=== PATIENT | female | born 1950 | race Caucasian/White ===

== ENCOUNTER → 2019-12-29 14:30 | Outpatient (BNVA) | payer SELFPAY | PROVIDERS: Visit Provider Internal Medicine | DX: M06.9 Rheumatoid arthritis, unspecified (principal); D86.9 Sarcoidosis, unspecified; M32.9 Systemic lupus erythematosus, unspecified; Z79.899 Other long term (current) drug therapy; Z11.59 Encounter for screening for other viral diseases; Z11.1 Encounter for screening for respiratory tuberculosis | CPT/HCPCS: 36415; 86480; 86704; 86803; 87340; 99213 ==

== ENCOUNTER → 2020-03-08 14:06 | Outpatient (BNVA) | payer SELFPAY | PROVIDERS: PCP Nurse Practitioner Family; Visit Provider Internal Medicine | DX: M06.9 Rheumatoid arthritis, unspecified (principal); Z79.899 Other long term (current) drug therapy; Z85.528 Personal history of other malignant neoplasm of kidney; Z85.828 Personal history of other malignant neoplasm of skin; Z98.890 Other specified postprocedural states | CPT/HCPCS: 36415; 80053; 85025; 99214 ==

== ENCOUNTER → 2020-06-05 08:13 | Outpatient (BNVA) | payer SELFPAY | PROVIDERS: PCP Nurse Practitioner Family; Visit Provider Internal Medicine | DX: M06.9 Rheumatoid arthritis, unspecified (principal); Z79.899 Other long term (current) drug therapy; R26.9 Unspecified abnormalities of gait and mobility; W19.XXXA Unspecified fall, initial encounter | CPT/HCPCS: 99214 ==

== ENCOUNTER 2020-08-21 14:14 | Outpatient (CLI) | payer SELFPAY ==
[2020-08-21 14:47] LABS: Basophils # 0.1 10^3/uL (0.0-0.1); Eosinophils # 0.2 10^3/uL (0.0-0.8); Eosinophils % 2.9 %; Hematocrit 37.3 % (37.0-47.0); Hemoglobin 11.6 g/dL (11.5-15.3); Lymphocytes # 1.3 10^3/uL (0.8-4.8); Mean Corpuscular HGB Conc 31.1 g/dL (30.0-36.0); Mean Corpuscular Hemoglobin 28.7 pg (28.0-34.0); Mean Corpuscular Volume 92.3 fL (81-99); Mean Platelet Volume 9.9 fL (7.4-10.4); Monocytes # 0.6 10^3/uL (0.2-0.9); Monocytes % 10.3 %; Neutrophils # 4.02 10^3/uL (1.8-7.7); Neutrophils % 64.5 %; Nucleated Red Blood Cells % 0 %; Platelet Count 225 10^3/cmm (130-400); Red Blood Count 4.04 10^6/uL (4.1-5.3); Red Cell Distribution Width 19.5 % (12.1-15.1); White Blood Count 6.2 10^3/uL (4.0-10.0)
[2020-08-21 15:01] LABS: Alanine Aminotransferase 16 U/L (0-33); Albumin Level 3.9 g/dL (3.5-5.2); Alkaline Phosphatase 97 IU/L (35-105); Anion Gap 12.4 (5-19); Aspartate Amino Transferase 20 U/L (0-32); Blood Urea Nitrogen 19 mg/dL (8-23); C Reactive Protein 3.2 mg/L (0.0-4.9); Calcium 8.9 mg/dL (8.5-10.5); Carbon Dioxide 25 mmol/L (22-29); Chloride 109 mmol/L (98-107); Globulin 2.8 g/dL (1.3-4.6); Glomerular Filtration Rate 40.9 mL/min (90-130); Glucose 103 mg/dL (65-115); Osmolality Calculated 297 mOsm/kg (285-295); Potassium 4.4 mmol/L (3.5-5.1); Sodium 142 mmol/L (136-145); Total Bilirubin 0.2 mg/dL (0.15-1.2); Total Protein 6.7 g/dL (6.6-8.7)
[2020-08-21 15:45] LABS: Erythrocyte Sedimentation Rate 20 mm/hr (0-15)
== END 2020-08-21 14:15 | disposition home or self-care (01) ==
LOC: LAB 14:20
PROVIDERS: PCP Nurse Practitioner Family; Visit Provider Internal Medicine
DX: M06.9 Rheumatoid arthritis, unspecified (principal); Z79.899 Other long term (current) drug therapy
CPT/HCPCS: 36415; 80053; 85025; 85651; 86140

== ENCOUNTER → 2020-08-22 13:12 | Outpatient (BNVA) | payer SELFPAY | PROVIDERS: PCP Nurse Practitioner Family; Visit Provider Internal Medicine | DX: M06.9 Rheumatoid arthritis, unspecified (principal); Z79.899 Other long term (current) drug therapy; R26.9 Unspecified abnormalities of gait and mobility | CPT/HCPCS: 99214 ==

== ENCOUNTER → 2020-11-07 12:52 | Outpatient (BNVA) | payer MEDICARE, SELFPAY | PROVIDERS: PCP Nurse Practitioner Family; Visit Provider Internal Medicine | DX: M06.9 Rheumatoid arthritis, unspecified (principal); Z79.899 Other long term (current) drug therapy; N18.9 Chronic kidney disease, unspecified; M17.11 Unilateral primary osteoarthritis, right knee; Z90.5 Acquired absence of kidney | CPT/HCPCS: 99213; 99214 ==

== ENCOUNTER 2020-11-08 13:09 | Outpatient (CLI) | payer MEDICARE, SELFPAY ==
--- NOTE | 2020-11-08 13:45 | XR_ITS ---
WS: [id number] KNEE RIGHT TECHNIQUE: 2 views of the right knee CLINICAL INFORMATION: M06.9 - Rheumatoid arthritis, unspecified COMPARISON: None. FINDINGS: Osteopenia. Marginal arthritis with joint space narrowing worse in the medial joint compartment. Hype rtrophic changes along the joint line. Hypertrophic patella. Advanced narrowing at the patellofemoral articulation. Soft tissue edema. XR/XR knee RT 1-2V [id number] IMPRESSION: Moderate degenerative arthritis worse in the medial joint compartment and baptiste lofemoral articulation. Hypertrophic patella. Kellgren-Fransisco Classification: grade 3 (moderate): moderate multiple osteoph ytes, definite narrowing of joint space and some sclerosis and possible deformi ty of bone ends
--- NOTE | 2020-11-08 14:00 | XR_ITS ---
WS: [id number] KNEE LEFT TECHNIQUE: 2 views of the left knee CLINICAL INFORMATION: M06.9 - Rheumatoid arthritis, unspecified COMPARISON: None. FINDINGS: Moderate arthritis with narrowing worse the medial joint compartment and patellofemoral articulation. Soft tissue edema. Hypertrophic changes along the joint line. No acute fractures. XR/XR knee LT 1-2V [id number] IMPRESSION: 1. Moderate degenerative arthritis worse in the medial joint compartment and p atellofemoral articulation. 2. Hypertrophic patella. Kellgren-Fransisco Classification: grade 3 (moderate): moderate multiple osteoph ytes, definite narrowing of joint space and some sclerosis and possible deformi ty of bone ends
== END 2020-11-08 13:10 | disposition home or self-care (01) ==
PROVIDERS: PCP Nurse Practitioner Family; Visit Provider Internal Medicine
DX: M06.9 Rheumatoid arthritis, unspecified (principal)
CPT/HCPCS: 73560

== ENCOUNTER → 2021-01-17 11:30 | Outpatient (BNVA) | payer MEDICARE, SELFPAY | PROVIDERS: PCP Nurse Practitioner Family; Visit Provider Internal Medicine | DX: M06.9 Rheumatoid arthritis, unspecified (principal); M17.10 Unilateral primary osteoarthritis, unspecified knee; Z79.899 Other long term (current) drug therapy; N18.9 Chronic kidney disease, unspecified; Z85.828 Personal history of other malignant neoplasm of skin; Z85.528 Personal history of other malignant neoplasm of kidney; Z90.5 Acquired absence of kidney | CPT/HCPCS: 99214 ==

== ENCOUNTER → 2021-06-27 10:09 | Outpatient (BNVA) | payer MEDICARE, SELFPAY | PROVIDERS: PCP Nurse Practitioner Family; Visit Provider Internal Medicine | DX: M06.9 Rheumatoid arthritis, unspecified (principal); Z79.899 Other long term (current) drug therapy; M17.11 Unilateral primary osteoarthritis, right knee | CPT/HCPCS: 99214 ==

== ENCOUNTER 2021-09-25 17:10 | Outpatient (CLI) | payer MEDICARE, SELFPAY ==
[2021-09-25 17:43] LABS: Basophils # 0.1 10^3/uL (0.0-0.1); Basophils % 1.1 %; Eosinophils # 0.2 10^3/uL (0.0-0.8); Eosinophils % 2.4 %; Hemoglobin 12.6 g/dL (11.5-15.3); Lymphocytes # 1.6 10^3/uL (0.8-4.8); Mean Corpuscular HGB Conc 33.2 g/dL (30.0-36.0); Mean Corpuscular Hemoglobin 30.9 pg (28.0-34.0); Mean Corpuscular Volume 93.1 fl (81-99); Mean Platelet Volume 10.5 fL (7.4-10.4); Monocytes # 0.2 10^3/uL (0.2-0.9); Monocytes % 3.8 %; Neutrophils # 4.14 10^3/uL (1.8-7.7); Neutrophils % 66.4 %; Nucleated Red Blood Cells % 0 %; Platelet Count 252 10^3/cmm (130-400); Red Blood Count 4.08 10^6/uL (4.1-5.3); Red Cell Distribution Width 14.3 % (12.1-15.1); White Blood Count 6.2 10^3/uL (4.0-10.0)
[2021-09-25 18:05] LABS: Alanine Aminotransferase 20 U/L (0-33); Albumin Level 3.9 g/dL (3.5-5.2); Alkaline Phosphatase 103 IU/L (35-105); Aspartate Amino Transferase 24 U/L (0-32); Blood Urea Nitrogen 19 mg/dL (8-23); C Reactive Protein 4.7 mg/L (0.0-4.9); Calcium 9.2 mg/dL (8.5-10.5); Carbon Dioxide 20 mmol/L (22-29); Chloride 104 mmol/L (98-107); Glomerular Filtration Rate 49.4 mL/min (90-130); Glucose 128 mg/dL (65-115); Osmolality Calculated 286 mOsm/kg (285-295); Sodium 136 mmol/L (136-145); Total Bilirubin 0.3 mg/dL (0.15-1.2); Total Protein 6.9 g/dL (6.6-8.7)
== END 2021-09-25 17:11 | disposition home or self-care (01) ==
LOC: LAB 17:12
PROVIDERS: PCP Nurse Practitioner Family; Visit Provider Internal Medicine
DX: M06.9 Rheumatoid arthritis, unspecified (principal); Z79.899 Other long term (current) drug therapy
CPT/HCPCS: 36415; 80053; 85025; 86140

== ENCOUNTER → 2021-09-26 08:29 | Outpatient (BNVA) | payer MEDICARE, SELFPAY | PROVIDERS: PCP Clinical Nurse Specialist Adult Health; Visit Provider Internal Medicine | DX: M06.9 Rheumatoid arthritis, unspecified (principal); N18.9 Chronic kidney disease, unspecified; Z79.899 Other long term (current) drug therapy | CPT/HCPCS: 99214 ==

== ENCOUNTER → 2021-12-26 09:02 | Outpatient (BNVA) | payer MEDICARE, SELFPAY | PROVIDERS: PCP Clinical Nurse Specialist Adult Health; Visit Provider Internal Medicine | DX: M06.9 Rheumatoid arthritis, unspecified (principal); N18.9 Chronic kidney disease, unspecified; Z79.899 Other long term (current) drug therapy | CPT/HCPCS: 80053; 81001; 85025; 85651; 86140; 99214 ==

== ENCOUNTER → 2022-04-09 09:46 | Outpatient (BNVA) | payer MEDICARE, SELFPAY | PROVIDERS: PCP Clinical Nurse Specialist Adult Health; Visit Provider Internal Medicine | DX: M06.9 Rheumatoid arthritis, unspecified (principal); N18.9 Chronic kidney disease, unspecified; Z79.899 Other long term (current) drug therapy; R21 Rash and other nonspecific skin eruption | CPT/HCPCS: 36415; 80053; 80061; 85025; 85651; 86140; 99214 ==

== ENCOUNTER → 2022-07-08 14:22 | Outpatient (BNVA) | payer MEDICARE, SELFPAY | PROVIDERS: PCP Clinical Nurse Specialist Adult Health; Visit Provider Internal Medicine | DX: M06.9 Rheumatoid arthritis, unspecified (principal); N18.9 Chronic kidney disease, unspecified; Z79.899 Other long term (current) drug therapy; R21 Rash and other nonspecific skin eruption | CPT/HCPCS: 36415; 80053; 85025; 85651; 86140; 99213 ==

== ENCOUNTER → 2022-07-17 06:40 | Outpatient (BNVA) | payer MEDICARE, SELFPAY | PROVIDERS: PCP Clinical Nurse Specialist Adult Health; Visit Provider Clinical Nurse Specialist Adult Health | DX: J06.9 Acute upper respiratory infection, unspecified (principal); Z20.822 Contact with and (suspected) exposure to COVID-19 | CPT/HCPCS: 87400; 87420; 87426 ==

== ENCOUNTER 2022-07-31 10:41 | Emergency (ER) | payer MEDICARE, SELFPAY ==
[2022-07-31 10:57] VITALS: BP 135/83; PULSE 69; RESP 20; TEMP 36.3; O2SAT 97; BMI 41.5
--- NOTE | 2022-07-31 13:05 | XR_ITS ---
WS: [id number] Exam: XR chest 1V portable [id number] Date/Time of Exam: 07/31/2022 1:06 PM Reason For Exam: cough No priors. The lungs are fully expanded. No consolidating infiltrates are noted. Coarsening of interstitial alexis ings may represent chronic change. No pleural effusions. Unremarkable cardiomediastinal silhouette. O ld fracture deformity of the proximal left humerus. XR/XR chest 1V portable [id number] IMPRESSION: 1. No acute process identified. 2. Coarsening of interstitial markings that may represent chronic change.
[2022-07-31 13:20] VITALS: BP 138/71; PULSE 78; RESP 16; O2SAT 95
[2022-07-31 13:38] VITALS: BP 138/71; PULSE 67; RESP 17; O2SAT 97
--- NOTE | 2022-07-31 13:38 | ED_ITS ---
HPI - URI/Sore Throat General: Chief Complaint: Upper Respiratory Infection Stated Complaint: SOB, Cough Time Seen by Provider: 07/31/22 13:05 Source: patient Mode of arrival: wheelchair Limitations: no limitations History of Present Illness: Patient is a 71-year-old female presents to ED today along with a friend for evaluation of a cough, chest congestion, shortness of breath, and left rib pain. Patient states approximately 3 weeks ago she began having a cough, sore throat, nasal congestion, etc. She states at some point she did have low-grade fevers, body aches, and chills but these have all subsided. She was seen at a walk-in clinic who suspected viral etiology. She did have negative flu and COVID swabs. Patient was placed on promethazine syrup for her cough as well as a 5-day burst steroid course. She was also given an albuterol inhaler. Patient states while on the steroids she did feel better but once those were completed she began feeling ill again. Patient was seen again at a walk-in facility and given antibiotics and tessalon perles. Patient states since taking the tessalon perles her cough has significantly improved however is still present. She states she was coughing so hard the other day that she feels like she pulled something in the left side of her chest. Patient does not complain of much dyspnea at rest but states she does become significantly short of breath with any form of exertion. She does not complain of any lower leg swelling, calf pain, orthopnea, or PND. MD elicited complaint: cough and other (chest congestion, rib pain, SOB) Onset (ago): week(s) Consistency: constant and improved Severity: moderate Description of mucous: clear Able to tolerate fluids by mouth: Yes Exacerbating factors: exertion Relieving factors: cough suppressant (tessalon pearls) and other (prednisone) Associated symptoms: Deny abdominal pain, chest pain, diarrhea, ear or mastoid pain, headache(s), nasal congestion, nausea or vomiting Treatments prior to arrival: antibiotics Review of Systems Const: Reports: other (had fever, chills, body aches several days ago but these have resolved); Denies: fatigue or malaise Eyes: Denies: change in vision, blurry vision, photophobia, floaters or seeing flashes ENMT: Denies: throat pain, odynophagia, ear or mastoid pain, nasal discharge or nasal congestion Card: Denies: chest pain Resp: Reports: dyspnea, non-productive cough and chest congestion; Denies: wheezing or hemoptysis GI: Denies: abdominal pain, nausea, vomiting or diarrhea : Denies: flank pain or dysuria Musc: Denies: neck pain, back pain, extremity pain or joint pain Skin/Breast: Denies: rash Neuro: Denies: headache(s), numbness in extremities, weakness in extremities, sensory changes, difficulty walking or dizziness PFSH ED PFSH: Medical History 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 CKD (chronic kidney disease) Hx of melanoma of skin Rash Renal carcinoma Rheumatoid arthritis Surgical History History of appendectomy History of hysterectomy for cancer History of nephrectomy S/P cholecystectomy S/P gastroplasty Status post surgical removal of malignant neoplasm of skin Family History Mother Cancer Social History Smoking and tobacco status: never smoked Alcohol intake: never Substance/Drug Use: never Physical Exam Const: COMMON NORMALS: no acute distress, patient oriented x3, no limitations, alert and well nourished GENERAL APPEARANCE: cooperative NUTRITIONAL APPEARANCE: obese ORIENTATION/CONSCIOUSNESS: Yes awake, Yes oriented to person, Yes oriented to place and Yes oriented to time HENMT: COMMON NORMALS: normocephalic and atraumatic HEAD & SCALP: normal to inspection, normocephalic and atraumatic FACE & SINUS: normal facial exam and sinuses nontender NOSE: no Nasal discharge present THROAT: posterior oropharynx normal Eye: GENERAL EYE: appearance normal, both eyes and all related structures Neck/C-Spine: COMMON NORMALS: full ROM and no lymphadenopathy GENERAL: Yes normal visual inspection Chest: COMMONS NORMALS: normal inspection of the chest OTHER: TTP L posterior lateral chest wall-no crepitus-palpation directly reproduces patient's pain Resp: COMMON NORMALS: normal respiratory effort and clear to auscultation bilaterally AUSCULTATION: clear to auscultation bilaterally Cardio: COMMON NORMALS: regular rate and regular rhythm RATE: regular rate RHYTHM: regular rhythm : COMMON NORMALS: Yes no CVA tenderness BLADDER/KIDNEY EXAM: Yes no CVA tenderness Back/Pelvis: COMMON NORMALS: no CVA tenderness, thoracic and lumbar spine normal to inspection, no thoracic nor lumbar tenderness and thoraco-lumbar ROM normal Extremity: COMMON NORMALS: normal to inspection GENERAL: Yes normal exam except as noted Neuro: FELIX COMA SCALE: document [facility] findings [place] coma scale eye opening: Spontaneous Felix coma scale verbal response: Orientated Felix coma scale motor response: Obey commands [place] coma scale total score: 15 COMMON NORMALS: patient oriented x3 SENSORIUM/ORIENTATION: Yes alert, Yes oriented to person, Yes oriented to place and Yes oriented to time Skin: COMMON NORMALS: no rashes or lesions noted GENERAL SKIN EXAM: no r ashes or lesions noted Course Vital Signs: Vital signs: Vital Signs Temperature 97.4 F L 07/31/22 10:57 Pulse Rate 79 07/31/22 15:40 Respiratory Rate 16 07/31/22 15:40 Blood Pressure 181/93 07/31/22 15:40 Pulse Oximetry 97 07/31/22 15:40 Oxygen Delivery Me thod Room Air 07/31/22 15:06 MDM - URI/Sore Throat Medical Decision Making Patient appears in no acute distress. Her vital signs are stable upon arrival. She is satting at 97% on room air. She is not tachycardic. Ultimately patient has had URI-like symptoms for approximately 3 weeks now. Blood work overall nonconcerning. Respiratory panel collected and pending. CXR showing chronic interstitial markings. Patient states she is aware of this as at one point she had a hvac specialist and had a CT scan of her chest showing chronic interstitial lung disease. Patient states her cough has improved after starting the Tessalon Perles. She states she did feel better while on the steroids we will place her on a longer steroid taper. We will place her on doxycycline for treatment of possible bacterial bronchitis. She is requesting something for pain for her left chest wall discomfort. Recommend she follow-up with primary care by the end of the week or early next week if she does not seem to be improving. Return ED precautions given. Lab Data 07/31/22 13:34 07/31/22 13:34 Radiology Impressions Chest X-Ray 07/31/22 13:05 IMPRESSION: 1. No acute process identified. 2. Coarsening of interstitial markings that may represent chronic change. Laboratory Results WBC 10.3 10^3/uL (4.0-10.0) H 07/31/22 13:34 RBC 4.09 10^6/uL (4.1-5.3) L 07/31/22 13:34 Hgb 10.5 g/dL (11.5-15.3) L 07/31/22 13:34 Hct 35.7 % (37.0-47.0) L 07/31/22 13:34 MCV 87.3 fl (81-99) 07/31/22 13:34 MCH 25.7 pg (28.0-34.0) L 07/31/22 13:34 MCHC 29.4 g/dL (30.0-36.0) L 07/31/22 13:34 RDW 18.2 % (12.1-15.1) H 07/31/22 13:34 Plt Count 456 10^3/cmm (130-400) H 07/31/22 13:34 MPV 9.8 fL (7.4-10.4) 07/31/22 13:34 Neut % (Auto) 72.8 % 07/31/22 13:34 Lymph % (Auto) 16.3 % 07/31/22 13:34 Will % (Auto) 8.3 % 07/31/22 13:34 Eos % (Auto) 1.3 % 07/31/22 13:34 Baso % (Auto) 0.9 % 07/31/22 13:34 Neut # (Auto) 7.53 10^3/uL (1.8-7.7) 07/31/22 13:34 Lymph # (Auto) 1.7 10^3/uL (0.8-4.8) 07/31/22 13:34 Will # (Auto) 0.9 10^3/uL (0.2-0.9) 07/31/22 13:34 Eos # (Auto) 0.1 10^3/uL (0.0-0.8) 07/31/22 13:34 Baso # (Auto) 0.1 10^3/uL (0.0-0.1) 07/31/22 13:34 Nucleated RBC % (auto) 0 % 07/31/22 13:34 Nucleated RBCs # 0.0 /100WBC 07/31/22 13:34 Sodium 141 mmol/L (136-145) 07/31/22 13:34 Potassium 4.2 mmol/L (3.5-5.1) 07/31/22 13:34 Chloride 106 mmol/L (98-107) 07/31/22 13:34 Carbon Dioxide 25 mmol/L (22-29) 07/31/22 13:34 Anion Gap 14.2 (5-19) 07/31/22 13:34 BUN 13 mg/dL (8-23) 07/31/22 13:34 Creatinine 1.1 mg/dL (0.5-0.9) H 07/31/22 13:34 GFR Calculation 49.2 mL/min (90-130) L 07/31/22 13:34 Glucose 101 mg/dL (65-115) 07/31/22 13:34 Calculated Osmolality 292 mOsm/kg (285-295) 07/31/22 13:34 Calcium 9.6 mg/dL (8.5-10.5) 07/31/22 13:34 Total Bilirubin 0.3 mg/dL (0.15-1.2) 07/31/22 13:34 AST 17 U/L (0-32) 07/31/22 13:34 ALT 17 U/L (0-33) 07/31/22 13:34 Alkaline Phosphatase 134 U/L (35-105) H 07/31/22 13:34 Total Protein 7.5 g/dL (6.6-8.7) 07/31/22 13:34 Albumin 4.0 g/dL (3.5-5.2) 07/31/22 13:34 Globulin 3.5 g/dL (1.3-4.6) 07/31/22 13:34 Procalcitonin 0.07 ng/mL (0-0.5) 07/31/22 13:34 Nasal Influ A H1 2008 PCR Not detected (NOT DETECT) 07/31/22 15:05 Adenovirus (PCR) Not detected (NOT DETECT) 07/31/22 15:05 C. pneumoniae DNA (PCR) Not detected (NOT DETECT) 07/31/22 15:05 Coronavirus 229E (PCR) Not detected (NOT DETECT) 07/31/22 15:05 Human Metapneumovir PCR Not detected (NOT DETECT) 07/31/22 15:05 Influenza A (H1) PCR Not detected (NOT DETECT) 07/31/22 15:05 Influenza A (H3) PCR Not detected (NOT DETECT) 07/31/22 15:05 Influenza Type A (PCR) Not detected (NOT DETECT) 07/31/22 15:05 Influenza Type B (PCR) Not detected (NOT DETECT) 07/31/22 15:05 M. pneumoniae (PCR) Not detected (NOT DETECT) 07/31/22 15:05 Parainfluenza 1 (PCR) Not detected (NOT DETECT) 07/31/22 15:05 Parainfluenza 2 (PCR) Not detected (NOT DETECT) 07/31/22 15:05 Parainfluenza 3 (PCR) Not detected (NOT DETECT) 07/31/22 15:05 Parainfluenza 4 (PCR) Not detected (NOT DETECT) 07/31/22 15:05 RSV Type A (PCR) Not detected (NOT DETECT) 07/31/22 15:05 RSV Type B (PCR) Not detected (NOT DETECT) 07/31/22 15:05 Entero/Rhino (PCR) Detected (NOT DETECT) A 07/31/22 15:05 SARS-CoV-2 (PCR) Not detected (NOT DETECT) 07/31/22 15:05 Discharge Plan Discharge Patient Disposition: Home Clinical Impression: Bronchitis Condition: Stable Prescriptions: New tramadol 50 mg tablet 50 mg PO Q6H PRN (Reason: pain) Qty: 14 0RF prednisone 10 mg tablet 10 mg PO DAILY 10 Days Qty: 27 0RF Rx Instructions: 6 tabs on days 1-2, 5 tabs on days 3, 4 tabs on day 4, 3 tabs on day 5, 2 tabs on day 6, 1 tab on day 7 doxycycline monohydrate 100 mg capsule 100 mg PO Q12H 10 Days Qty: 20 0RF No Action cholecalciferol (vitamin D3) 25 mcg (1,000 unit) capsule 25 mcg PO DAILY magnesium 250 mg tablet 250 mg PO DAILY calcium carbonate [Calcium 500] 500 mg calcium (1,250 mg) tablet 500 mg PO DAILY multivitamin [Daily Multi-Vitamin] Tablet 1 tab PO DAILY albuterol sulfate 90 mcg/actuation HFA aerosol inhaler 2 inh inhalation QID PRN (Reason: shortness of breath or wheezing) Qty: 8.5 2RF hydroxychloroquine 200 mg tablet 200 mg PO BID Qty: 180 1RF folic acid 1 mg tablet 1 mg PO DAILY Qty: 90 1RF gabapentin 100 mg capsule 200 mg PO TID 90 Days Qty: 540 2RF methotrexate sodium 2.5 mg tablet 15 mg PO Q7D Rx Instructions: ON SATURDAYS Discharge Orders: Discharge ED (Routine); Ordered 07/31/22 Ordered By: Marge Sullivan Referrals: Balbir Owens POLYMER SCIENTIST [Primary Care Provider] - Patient Instructions: Acute Bronchitis (ED) Coding Level of Care Code ED Corrugator Machine Operator for Magdaleno Walker
[2022-07-31] MEDS: morphine 4 mg/mL SDV 1 mL IVP (13:42)
[2022-07-31 13:55] LABS: Basophils # 0.1 10^3/uL (0.0-0.1); Basophils % 0.9 %; Eosinophils # 0.1 10^3/uL (0.0-0.8); Eosinophils % 1.3 %; Hematocrit 35.7 % (37.0-47.0); Hemoglobin 10.5 g/dL (11.5-15.3); Lymphocytes # 1.7 10^3/uL (0.8-4.8); Lymphocytes % 16.3 %; Mean Corpuscular HGB Conc 29.4 g/dL (30.0-36.0); Mean Corpuscular Hemoglobin 25.7 pg (28.0-34.0); Mean Corpuscular Volume 87.3 fl (81-99); Mean Platelet Volume 9.8 fL (7.4-10.4); Monocytes # 0.9 10^3/uL (0.2-0.9); Monocytes % 8.3 %; Neutrophils # 7.53 10^3/uL (1.8-7.7); Neutrophils % 72.8 %; Nucleated Red Blood Cells % 0 %; Platelet Count 456 10^3/cmm (130-400); Red Blood Count 4.09 10^6/uL (4.1-5.3); Red Cell Distribution Width 18.2 % (12.1-15.1); White Blood Count 10.3 10^3/uL (4.0-10.0)
[2022-07-31 14:19] LABS: Alanine Aminotransferase 17 U/L (0-33); Alkaline Phosphatase 134 U/L (35-105); Anion Gap 14.2 (5-19); Aspartate Amino Transferase 17 U/L (0-32); Blood Urea Nitrogen 13 mg/dL (8-23); Calcium 9.6 mg/dL (8.5-10.5); Carbon Dioxide 25 mmol/L (22-29); Chloride 106 mmol/L (98-107); Globulin 3.5 g/dL (1.3-4.6); Glomerular Filtration Rate 49.2 mL/min (90-130); Glucose 101 mg/dL (65-115); Osmolality Calculated 292 mOsm/kg (285-295); Potassium 4.2 mmol/L (3.5-5.1); Sodium 141 mmol/L (136-145); Total Bilirubin 0.3 mg/dL (0.15-1.2); Total Protein 7.5 g/dL (6.6-8.7)
[2022-07-31 14:25] VITALS: PULSE 77; RESP 16; O2SAT 97
[2022-07-31 14:26] LABS: Procalcitonin 0.07 ng/mL (0-0.5)
[2022-07-31 15:06] VITALS: BP 181/93; PULSE 79; RESP 16; O2SAT 97
[2022-07-31 15:40] VITALS: BP 181/93; PULSE 79; RESP 16; O2SAT 97
[2022-07-31 16:59] LABS: Adenovirus Not Detected (NOT DETECT); Chlamydia Pneumoniae Not Detected (NOT DETECT); Coronavirus 229E,HKU1,NL63,OC4 Not Detected (NOT DETECT); Human Metapneumovirus Not Detected (NOT DETECT); Human Rhinovirus/Enterovirus Detected (NOT DETECT); Influenza A Not Detected (NOT DETECT); Influenza A H1 Not Detected (NOT DETECT); Influenza A H1-2009 Not Detected (NOT DETECT); Influenza A H3 Not Detected (NOT DETECT); Influenza B Not Detected (NOT DETECT); Mycoplasma Pneumoniae Not Detected (NOT DETECT); Parainfluenza Virus Type 1 Not Detected (NOT DETECT); Parainfluenza Virus Type 2 Not Detected (NOT DETECT); Parainfluenza Virus Type 3 Not Detected (NOT DETECT); Parainfluenza Virus Type 4 Not Detected (NOT DETECT); Respiratory Syncytial Virus A Not Detected (NOT DETECT); Respiratory Syncytial Virus B Not Detected (NOT DETECT); SARS-COV-2 Not Detected (NOT DETECT)
== END 2022-07-31 15:44 | disposition home or self-care (01) ==
PROVIDERS: Emergency Provider Physician Assistant; PCP Clinical Nurse Specialist Adult Health
DX: J40 Bronchitis, not specified as acute or chronic (principal); Z20.822 Contact with and (suspected) exposure to COVID-19; N18.9 Chronic kidney disease, unspecified; Z85.528 Personal history of other malignant neoplasm of kidney
CPT/HCPCS: 71045; 80053; 84145; 85025; 87486; 87581; 87633; 96374; 99284; J2270

== ENCOUNTER → 2022-10-03 14:28 | Outpatient (BNVA) | payer MEDICARE, SELFPAY | PROVIDERS: PCP Clinical Nurse Specialist Adult Health; Visit Provider Internal Medicine | DX: M06.9 Rheumatoid arthritis, unspecified (principal); N18.9 Chronic kidney disease, unspecified; Z79.899 Other long term (current) drug therapy; R21 Rash and other nonspecific skin eruption | CPT/HCPCS: 99214 ==

== ENCOUNTER → 2022-12-18 15:23 | Outpatient (BNVA) | payer MEDICARE, SELFPAY | PROVIDERS: PCP Clinical Nurse Specialist Adult Health; Visit Provider Internal Medicine | DX: M17.10 Unilateral primary osteoarthritis, unspecified knee (principal); M06.9 Rheumatoid arthritis, unspecified; N18.9 Chronic kidney disease, unspecified; Z79.899 Other long term (current) drug therapy | CPT/HCPCS: 36415; 80053; 85025; 99214 ==

== ENCOUNTER → 2023-03-12 15:04 | Outpatient (BNVA) | payer MEDICARE, SELFPAY | PROVIDERS: PCP Clinical Nurse Specialist Adult Health; Visit Provider Internal Medicine | DX: M17.10 Unilateral primary osteoarthritis, unspecified knee (principal); N18.9 Chronic kidney disease, unspecified; Z79.899 Other long term (current) drug therapy; M06.9 Rheumatoid arthritis, unspecified | CPT/HCPCS: 36415; 80053; 85025; 85651; 86140; 99214 ==

== ENCOUNTER → 2023-05-28 14:07 | Outpatient (BNVA) | payer MEDICARE, SELFPAY | PROVIDERS: PCP Clinical Nurse Specialist Adult Health; Visit Provider Clinical Nurse Specialist Adult Health | DX: N18.9 Chronic kidney disease, unspecified (principal); D64.9 Anemia, unspecified; N23 Unspecified renal colic; D63.1 Anemia in chronic kidney disease; R73.01 Impaired fasting glucose | CPT/HCPCS: 80053; 81000; 83036; 83540; 85025; 87086 ==

== ENCOUNTER 2023-06-19 15:00 | Oncology outpatient (recurring) (ONCR) | payer MEDICARE, SELFPAY ==
[2023-06-12 14:26] LABS: Basophils # 0.1 10^3/uL (0.0-0.1); Basophils % 1.1 %; Eosinophils # 0.2 10^3/uL (0.0-0.8); Eosinophils % 2.9 %; Lymphocytes # 1.7 10^3/uL (0.8-4.8); Lymphocytes % 23.4 %; Mean Corpuscular Hemoglobin 23.6 pg (27-33); Mean Corpuscular Volume 81.4 fl (85-98); Mean Platelet Volume 9.7 fL (7.4-10.4); Monocytes # 0.8 10^3/uL (0.2-0.9); Monocytes % 10.9 %; Neutrophils # 4.39 10^3/uL (1.8-7.7); Neutrophils % 61.4 %; Nucleated Red Blood Cells % 0 %; Platelet Count 363 10^3/cmm (157-399); Red Blood Count 3.81 10^6/uL (3.85-5.65); Red Cell Distribution Width 20.9 % (12.1-15.1); White Blood Count 7.15 10^3/uL (3.29-11.43)
[2023-06-12] MEDS: ferric carboxy (IVPB) 750 MG in sodium chloride 0.9% (100 ml) 100 ML 345 MG IV (14:42)
[2023-06-12] MEDS: sodium chloride 0.9% 250 ML 75 ML IV (14:43)
[2023-06-12 14:48] LABS: Alanine Aminotransferase 13 U/L (0-33); Albumin Level 3.9 g/dL (3.5-5.2); Alkaline Phosphatase 108 U/L (35-105); Anion Gap 12.6 (5-19); Aspartate Amino Transferase 18 U/L (0-32); Blood Urea Nitrogen 19 mg/dL (8-23); Carbon Dioxide 24 mmol/L (22-29); Chloride 107 mmol/L (98-107); Creatinine Clr Calc Pharmacy 67.4124; Globulin 2.7 g/dL (1.3-4.6); Glomerular Filtration Rate 44.4 mL/min (90-130); Glucose 101 mg/dL (65-115); Osmolality Calculated 290 mOsm/kg (285-295); Potassium 4.6 mmol/L (3.5-5.1); Sodium 139 mmol/L (136-145); Total Bilirubin 0.2 mg/dL (0.15-1.2); Total Protein 6.6 g/dL (6.6-8.7)
[2023-06-12 14:50] LABS: Alanine Aminotransferase 13 U/L (0-33); Albumin Level 3.9 g/dL (3.5-5.2); Alkaline Phosphatase 107 U/L (35-105); Aspartate Amino Transferase 18 U/L (0-32); C Reactive Protein 3.3 mg/L (0.0-4.9); Creatinine Clr Calc Pharmacy 73.5408; Ferritin 8 ng/mL (15-150); Globulin 2.7 g/dL (1.3-4.6); Glomerular Filtration Rate 49.1 mL/min (90-130); Iron 20 ug/dL (37-145); Percent Saturation 4.7 % (20-50); Total Bilirubin 0.2 mg/dL (0.15-1.2); Total Iron Binding Capacity 425 mcg/dl; Total Protein 6.6 g/dL (6.6-8.7); Unsaturated Iron Binding 405 ug/dL (112-347)
[2023-06-19 15:15] VITALS: BP 156/71; PULSE 86; RESP 16; TEMP 36.9; O2SAT 95
[2023-06-19] MEDS: ferric carboxy (IVPB) 750 MG in sodium chloride 0.9% (100 ml) 100 ML 345 MG IV (15:40)
[2023-06-19 16:10] VITALS: BP 146/81; PULSE 76; RESP 16; TEMP 36.8; O2SAT 98
== END 2023-07-06 23:59 | disposition home or self-care (01) ==
PROVIDERS: Internal Medicine Rheumatology; PCP Clinical Nurse Specialist Adult Health; Visit Provider Internal Medicine Medical Oncology
DX: D50.9 Iron deficiency anemia, unspecified (principal); Z53.9 Procedure and treatment not carried out, unspecified reason
CPT/HCPCS: 80053; 80076; 82565; 82728; 83540; 83550; 85025; 86140; 96365; 99205; J1439; J7050

== ENCOUNTER → 2023-06-24 13:54 | Outpatient (BNVA) | payer MEDICARE, SELFPAY | PROVIDERS: PCP Clinical Nurse Specialist Adult Health; Visit Provider Internal Medicine Rheumatology | DX: Z79.899 Other long term (current) drug therapy (principal); M06.9 Rheumatoid arthritis, unspecified; N18.31 Chronic kidney disease, stage 3a | CPT/HCPCS: 99214 ==

== ENCOUNTER 2023-07-30 15:30 | Oncology outpatient (recurring) (ONCR) | payer MEDICARE, SELFPAY ==
[2023-07-22 15:05] LABS: Basophils # 0.1 10^3/uL (0.0-0.1); Basophils % 1.2 %; Eosinophils # 0.2 10^3/uL (0.0-0.8); Eosinophils % 2.5 %; Lymphocytes # 1.3 10^3/uL (0.8-4.8); Lymphocytes % 19.8 %; Mean Corpuscular HGB Conc 30.7 g/dL (30-55); Mean Corpuscular Hemoglobin 28.2 pg (27-33); Mean Corpuscular Volume 91.9 fl (85-98); Mean Platelet Volume 10.8 fL (7.4-10.4); Monocytes # 0.6 10^3/uL (0.2-0.9); Monocytes % 9.7 %; Neutrophils # 4.34 10^3/uL (1.8-7.7); Neutrophils % 66.6 %; Nucleated Red Blood Cells % 0 %; Platelet Count 259 10^3/cmm (157-399); Red Blood Count 4.57 10^6/uL (3.85-5.65); Red Cell Distribution Width 25.4 % (12.1-15.1); White Blood Count 6.51 10^3/uL (3.29-11.43)
[2023-07-22 15:25] LABS: Alanine Aminotransferase 17 U/L (0-33); Alkaline Phosphatase 125 U/L (35-105); Anion Gap 14.2 (5-19); Aspartate Amino Transferase 22 U/L (0-32); Blood Urea Nitrogen 22 mg/dL (8-23); Calcium 9.4 mg/dL (8.5-10.5); Carbon Dioxide 22 mmol/L (22-29); Chloride 108 mmol/L (98-107); Ferritin 90 ng/mL (15-150); Globulin 3.1 g/dL (1.3-4.6); Glomerular Filtration Rate 54.8 mL/min (90-130); Glucose 199 mg/dL (65-115); Iron 49 ug/dL (37-145); Osmolality Calculated 299 mOsm/kg (285-295); Percent Saturation 15.6 % (20-50); Potassium 4.2 mmol/L (3.5-5.1); Sodium 140 mmol/L (136-145); Total Bilirubin 0.2 mg/dL (0.15-1.2); Total Iron Binding Capacity 314 mcg/dl; Total Protein 7.1 g/dL (6.6-8.7); Unsaturated Iron Binding 265 ug/dL (112-347)
[2023-07-22] MEDS: ipratropium-albuterol 3 mL Neb INHALATION (16:19)
[2023-07-30 15:57] VITALS: BP 125/77; PULSE 80; RESP 16; TEMP 36.6; O2SAT 96
[2023-07-30] MEDS: ferric carboxy (IVPB) 750 MG in sodium chloride 0.9% (100 ml) 100 ML 345 MG IV (16:03)
[2023-07-30 16:27] VITALS: BP 136/77; PULSE 68; RESP 16; TEMP 36.3; O2SAT 95
== END 2023-08-05 23:59 | disposition home or self-care (01) ==
PROVIDERS: PCP Clinical Nurse Specialist Adult Health; Visit Provider Internal Medicine Medical Oncology
DX: D50.9 Iron deficiency anemia, unspecified; Z53.9 Procedure and treatment not carried out, unspecified reason
CPT/HCPCS: 36415; 80053; 82728; 83540; 83550; 85025; 96365; 99214; J1439

== ENCOUNTER 2023-08-28 13:05 | Oncology outpatient (recurring) (ONCR) | payer MEDICARE, SELFPAY ==
[2023-08-06] MEDS: sodium chloride 0.9% 250 ML 75 ML IV (16:01)
[2023-08-06] MEDS: ferric carboxy (IVPB) 750 MG in sodium chloride 0.9% (100 ml) 100 ML 345 MG IV (16:01)
[2023-08-06 16:32] VITALS: BP 124/68; PULSE 62; RESP 16; TEMP 36.3; O2SAT 94
[2023-08-19 14:45] LABS: Basophils # 0.1 10^3/uL (0.0-0.1); Basophils % 1.4 %; Eosinophils # 0.2 10^3/uL (0.0-0.8); Lymphocytes # 1.3 10^3/uL (0.8-4.8); Lymphocytes % 21.8 %; Mean Corpuscular HGB Conc 31.6 g/dL (30-55); Mean Corpuscular Hemoglobin 30.3 pg (27-33); Mean Corpuscular Volume 95.8 fl (85-98); Mean Platelet Volume 11.1 fL (7.4-10.4); Monocytes # 0.6 10^3/uL (0.2-0.9); Monocytes % 9.3 %; Neutrophils # 3.79 10^3/uL (1.8-7.7); Neutrophils % 64.2 %; Nucleated Red Blood Cells % 0 %; Platelet Count 223 10^3/cmm (157-399); Red Blood Count 4.49 10^6/uL (3.85-5.65); Red Cell Distribution Width 20.8 % (12.1-15.1); White Blood Count 5.91 10^3/uL (3.29-11.43)
[2023-08-19 15:06] LABS: Alanine Aminotransferase 18 U/L (0-33); Alkaline Phosphatase 130 U/L (35-105); Anion Gap 14.1 (5-19); Aspartate Amino Transferase 24 U/L (0-32); Blood Urea Nitrogen 17 mg/dL (8-23); Calcium 8.5 mg/dL (8.5-10.5); Carbon Dioxide 23 mmol/L (22-29); Chloride 106 mmol/L (98-107); Ferritin 531 ng/mL (15-150); Globulin 3.1 g/dL (1.3-4.6); Glomerular Filtration Rate 49.1 mL/min (90-130); Glucose 193 mg/dL (65-115); Iron 84 ug/dL (37-145); Osmolality Calculated 295 mOsm/kg (285-295); Percent Saturation 31.3 % (20-50); Potassium 4.1 mmol/L (3.5-5.1); Sodium 139 mmol/L (136-145); Total Bilirubin 0.2 mg/dL (0.15-1.2); Total Iron Binding Capacity 268 mcg/dl; Total Protein 7.1 g/dL (6.6-8.7); Unsaturated Iron Binding 184 ug/dL (112-347)
[2023-08-19 16:46] LABS: Blood Urine 2+ (Negative); Glucose Urine UA Norm (Normal); Ketones Urine Negative (Negative); Nitrate Urine Negative (Negative); Protein Urine 1+ (Negative); Urine Appearance Hazy (CLEAR); Urine Color Yellow (Yellow); pH Urine 5 (5-7)
[2023-08-19 16:47] LABS: Add Urine Microscopic? YES; Bilirubin Urine 1+ (Negative); Leukocyte Esterase Urine Negative (Negative); Urobilinogen Urine Norm (Negative)
[2023-08-19 17:03] LABS: Add Urine Culture? Yes; Bacteria Urine TRACE /hpf; Mucus Urine TRACE /hpf; Oval Fat Bodies Urine 1+ /hpf; Squamous Epithelial Cell Urine 0-4 /hpf (0-5)
== END 2023-09-05 23:59 | disposition home or self-care (01) ==
PROVIDERS: Nurse Practitioner Family; PCP Clinical Nurse Specialist Adult Health; Visit Provider Internal Medicine Medical Oncology
DX: D50.9 Iron deficiency anemia, unspecified (principal); Z79.899 Other long term (current) drug therapy; Z85.528 Personal history of other malignant neoplasm of kidney; Z90.5 Acquired absence of kidney; R53.83 Other fatigue; R06.02 Shortness of breath
CPT/HCPCS: 36415; 80053; 81001; 82728; 83540; 83550; 85025; 87086; 96365; 99214; J1439; J7050

== ENCOUNTER → 2023-09-23 09:16 | Outpatient (BNVA) | payer MEDICARE, SELFPAY | PROVIDERS: PCP Clinical Nurse Specialist Adult Health; Visit Provider Clinical Nurse Specialist Adult Health | DX: M06.9 Rheumatoid arthritis, unspecified (principal); R30.0 Dysuria; M51.17 Intervertebral disc disorders with radiculopathy, lumbosacral region | CPT/HCPCS: 81000; 87086 ==

== ENCOUNTER → 2023-10-13 10:58 | Outpatient (BNVA) | payer MEDICARE, SELFPAY | PROVIDERS: PCP Clinical Nurse Specialist Adult Health; Visit Provider Clinical Nurse Specialist Adult Health | DX: N39.0 Urinary tract infection, site not specified (principal); R31.9 Hematuria, unspecified | CPT/HCPCS: 81000; 81003; 87077; 87086; 87184 ==

== ENCOUNTER → 2023-10-24 12:56 | Outpatient (BNVA) | payer MEDICARE, SELFPAY | PROVIDERS: PCP Clinical Nurse Specialist Adult Health; Visit Provider Clinical Nurse Specialist Adult Health | DX: N39.0 Urinary tract infection, site not specified (principal) | CPT/HCPCS: 81000; 87086 ==

== ENCOUNTER 2023-11-05 07:22 | Oncology outpatient (recurring) (ONCR) | payer MEDICARE, SELFPAY ==
[2023-11-05 07:58] LABS: Basophils # 0.1 10^3/uL (0.0-0.1); Basophils % 1.5 %; Eosinophils # 0.2 10^3/uL (0.0-0.8); Eosinophils % 3.6 %; Hematocrit 40.1 % (36-47); Lymphocytes # 1.6 10^3/uL (0.8-4.8); Lymphocytes % 24.3 %; Mean Corpuscular HGB Conc 31.7 g/dL (30-55); Mean Corpuscular Hemoglobin 30.8 pg (27-33); Mean Corpuscular Volume 97.3 fl (85-98); Mean Platelet Volume 11.6 fL (7.4-10.4); Monocytes # 0.7 10^3/uL (0.2-0.9); Monocytes % 11.1 %; Neutrophils # 3.94 10^3/uL (1.8-7.7); Neutrophils % 59.2 %; Nucleated Red Blood Cells % 0 %; Platelet Count 204 10^3/cmm (157-399); Red Blood Count 4.12 10^6/uL (3.85-5.65); Red Cell Distribution Width 13.7 % (12.1-15.1); White Blood Count 6.66 10^3/uL (3.29-11.43)
[2023-11-05 08:06] LABS: Alanine Aminotransferase 13 U/L (0-33); Albumin Level 3.7 g/dL (3.5-5.2); Alkaline Phosphatase 149 U/L (35-105); Anion Gap 14.6 (5-19); Aspartate Amino Transferase 18 U/L (0-32); Blood Urea Nitrogen 21 mg/dL (8-23); Calcium 8.9 mg/dL (8.5-10.5); Carbon Dioxide 22 mmol/L (22-29); Chloride 111 mmol/L (98-107); Ferritin 94 ng/mL (15-150); Globulin 2.7 g/dL (1.3-4.6); Glucose 112 mg/dL (65-115); Iron 39 ug/dL (37-145); Osmolality Calculated 300 mOsm/kg (285-295); Percent Saturation 14.3 % (20-50); Potassium 4.6 mmol/L (3.5-5.1); Sodium 143 mmol/L (136-145); Total Bilirubin 0.2 mg/dL (0.15-1.2); Total Iron Binding Capacity 271 mcg/dl; Total Protein 6.4 g/dL (6.6-8.7); Unsaturated Iron Binding 232 ug/dL (112-347)
[2023-11-05] MEDS: ferric carboxy (PYXIS) 750 MG in sodium chloride 0.9% (100 ml) 100 ML 345 MG IV (14:04)
[2023-11-05 14:09] LABS: Bilirubin Urine Negative (Negative); Blood Urine 2+ (Negative); Glucose Urine UA Negative (Normal); Ketones Urine Negative (Negative); Leukocyte Esterase Urine Negative (Negative); Nitrate Urine Negative (Negative); Protein Urine 1+ (Negative); Urine Appearance Cloudy (CLEAR); Urine Color Yellow (Yellow)
[2023-11-05 14:11] LABS: Bacteria Urine None Seen /hpf; Hyaline Casts Urine 7.85 /lpf; RBC Urine 21-50 /hpf (0-2); Squamous Epithelial Cell Urine 0-5 /hpf (0-5)
[2023-11-05 14:37] VITALS: BP 126/80; PULSE 76; RESP 16; TEMP 36.5; O2SAT 98
== END 2023-11-05 23:59 | disposition home or self-care (01) ==
PROVIDERS: PCP Clinical Nurse Specialist Adult Health; Visit Provider Internal Medicine Medical Oncology
DX: D50.8 Other iron deficiency anemias (principal); C64.1 Malignant neoplasm of right kidney, except renal pelvis; Z79.899 Other long term (current) drug therapy; Z90.5 Acquired absence of kidney; Z85.528 Personal history of other malignant neoplasm of kidney
CPT/HCPCS: 36415; 80053; 81001; 82728; 83540; 83550; 85025; 96365; 99214; J1439

== ENCOUNTER 2023-11-24 07:21 | Outpatient (CLI) | payer MEDICARE, SELFPAY ==
[2023-11-24 07:43] LABS: Basophils # 0.1 10^3/uL (0.0-0.1); Basophils % 1.3 %; Eosinophils # 0.2 10^3/uL (0.0-0.8); Eosinophils % 3.5 %; Hematocrit 42.2 % (36-47); Lymphocytes # 1.7 10^3/uL (0.8-4.8); Lymphocytes % 27.8 %; Mean Corpuscular HGB Conc 31.8 g/dL (30-55); Mean Corpuscular Hemoglobin 30.7 pg (27-33); Mean Corpuscular Volume 96.6 fl (85-98); Mean Platelet Volume 10.8 fL (7.4-10.4); Monocytes # 0.6 10^3/uL (0.2-0.9); Monocytes % 9.3 %; Neutrophils % 57.6 %; Nucleated Red Blood Cells % 0 %; Platelet Count 213 10^3/cmm (157-399); Red Blood Count 4.37 10^6/uL (3.85-5.65); White Blood Count 6.25 10^3/uL (3.29-11.43)
[2023-11-24 08:14] LABS: Alanine Aminotransferase 15 U/L (0-33); Alkaline Phosphatase 150 U/L (35-105); Aspartate Amino Transferase 21 U/L (0-32); C Reactive Protein 3.6 mg/L (0.0-4.9); Globulin 2.2 g/dL (1.3-4.6); Total Bilirubin 0.2 mg/dL (0.15-1.2); Total Protein 6.2 g/dL (6.6-8.7)
== END 2023-11-24 07:22 | disposition home or self-care (01) ==
PROVIDERS: PCP Clinical Nurse Specialist Adult Health; Visit Provider Internal Medicine Rheumatology
DX: M06.9 Rheumatoid arthritis, unspecified (principal); N18.31 Chronic kidney disease, stage 3a; Z79.899 Other long term (current) drug therapy; M81.0 Age-related osteoporosis without current pathological fracture; D50.9 Iron deficiency anemia, unspecified; Z90.5 Acquired absence of kidney; Z85.828 Personal history of other malignant neoplasm of skin; Z85.820 Personal history of malignant melanoma of skin; Z11.1 Encounter for screening for respiratory tuberculosis; Z11.59 Encounter for screening for other viral diseases
CPT/HCPCS: 36415; 80076; 82565; 85025; 86140; 99214

== ENCOUNTER 2023-12-04 07:45 | Oncology outpatient (recurring) (ONCR) | payer MEDICARE, SELFPAY ==
[2023-11-12 14:09] LABS: Bilirubin Urine Negative (Negative); Blood Urine Negative (Negative); Glucose Urine UA Negative (Normal); Ketones Urine Negative (Negative); Leukocyte Esterase Urine Trace (Negative); Nitrate Urine Negative (Negative); Protein Urine 1+ (Negative); Specific Gravity, Urine 1.016 (1.005-1.030); Urine Appearance Clear (CLEAR); Urine Color Yellow (Yellow); Urobilinogen Urine 0.2 mg/dL (Negative); pH Urine 5.5 (5-7)
[2023-11-12 14:14] LABS: Bacteria Urine None Seen /hpf; Hyaline Casts Urine 1.21 /lpf; RBC Urine 0-2 /hpf (0-2); Squamous Epithelial Cell Urine 0-5 /hpf (0-5)
--- NOTE | 2023-11-17 09:00 | CT_ITS ---
WS: [id number] CT CHEST, ABDOMEN, AND PELVIS TECHNIQUE: Contrast-enhanced CT of the chest, abdomen, and pelvis with coronal and sagittal reformatt ed images. CLINICAL INFORMATION: Renal cell cancer COMPARISON: None. DLP: 2089.[address] scans at [facility] use at least one of these dose optimization techniques: automated e xposure control; mA and/or kV adjustment per patient size (includes targeted exams where dose is matc hed to clinical indication); or iterative reconstruction. CT CHEST: Normal caliber thoracic aorta. Proximal pulmonary arteries are normal. Coronary calcification. No med iastinal or hilar lymphadenopathy. Calcified subcarinal and RIGHT hilar lymph nodes. No axillary lymp hadenopathy. Calcified granuloma RIGHT lower lobe. Chronic LEFT rib fractures with callus formation. Mild thoracic kyphosis. Hypertrophic changes thoracic spine. Few small noncalcified pulmonary nodules in the RIGHT middle lobe and RIGHT lower lobe. Largest nodu le measures 6 mm in the RIGHT lower lobe laterally. No prior comparisons. Recommend 3-month follow-up . CT ABDOMEN AND PELVIS: Diffuse fatty infiltration of the liver. Mild hepatomegaly. Cholecystectomy. Splenic granulomas. Post operative changes gastric bypass. Prior hysterectomy. Prior RIGHT nephrectomy. Adrenal glands appear normal. Normal LEFT renal parenchymal enhancement. Normal hepatic enhancement. Normal portal vein and splenic vein. No adenopathy in the abdomen or pelvis. Normal sigmoid colon. Mild aortic calcification. Normal caliber abdominal aorta. Mild chronic compression superior end plat e L4 sclerosis. CT/CT chest abdpel w/*[id number] IMPRESSION: 1. A few noncalcified pulmonary nodules largest in the RIGHT lower lobe measur ing 6 mm. These are indeterminate. No prior comparisons. Recommend 3-month foll ow-up chest CT. 2. No mediastinal or hilar lymphadenopathy. No axillary lymphadenopathy. 3. Prior RIGHT nephrectomy. No recurrence in the nephrectomy bed. Normal adren al glands. 4. Normal parenchymal enhancement LEFT kidney. 5. Diffuse fatty infiltration of the liver. 6. Prior cholecystectomy. 7. Prior gastric bypass and hysterectomy. 8. Chronic appearing mild compression superior endplate L4 with sclerosis.
[2023-11-17] MEDS: iohexol 350 mg/mL 500 mL Btl (per mL) PO (09:38)
[2023-11-17] MEDS: iohexol 350 mg/mL 500 mL Btl (per mL) IV (09:39)
[2023-12-04 08:10] LABS: Basophils % 0.3 %; Lymphocytes # 0.8 10^3/uL (0.8-4.8); Lymphocytes % 9.7 %; Mean Corpuscular HGB Conc 31.9 g/dL (30-55); Mean Corpuscular Volume 97.3 fl (85-98); Mean Platelet Volume 11.5 fL (7.4-10.4); Monocytes # 0.3 10^3/uL (0.2-0.9); Monocytes % 3.4 %; Neutrophils # 6.82 10^3/uL (1.8-7.7); Neutrophils % 86.1 %; Nucleated Red Blood Cells % 0 %; Platelet Count 208 10^3/cmm (157-399); Red Blood Count 4.42 10^6/uL (3.85-5.65); Red Cell Distribution Width 14.6 % (12.1-15.1); White Blood Count 7.92 10^3/uL (3.29-11.43)
[2023-12-04 08:43] LABS: Alanine Aminotransferase 18 U/L (0-33); Albumin Level 3.8 g/dL (3.5-5.2); Alkaline Phosphatase 173 U/L (35-105); Anion Gap 17.3 (5-19); Aspartate Amino Transferase 20 U/L (0-32); Blood Urea Nitrogen 19 mg/dL (8-23); Carbon Dioxide 20 mmol/L (22-29); Chloride 107 mmol/L (98-107); Globulin 2.7 g/dL (1.3-4.6); Glucose 244 mg/dL (65-115); Osmolality Calculated 300 mOsm/kg (285-295); Potassium 4.3 mmol/L (3.5-5.1); Sodium 140 mmol/L (136-145); Total Bilirubin 0.2 mg/dL (0.15-1.2); Total Protein 6.5 g/dL (6.6-8.7)
== END 2023-12-06 23:59 | disposition home or self-care (01) ==
PROVIDERS: Nurse Practitioner Family; PCP Clinical Nurse Specialist Adult Health; Visit Provider Internal Medicine Medical Oncology
DX: D50.9 Iron deficiency anemia, unspecified (principal); Z79.899 Other long term (current) drug therapy; Z85.528 Personal history of other malignant neoplasm of kidney; Z90.5 Acquired absence of kidney; R53.83 Other fatigue; R06.02 Shortness of breath; Z53.9 Procedure and treatment not carried out, unspecified reason; C64.1 Malignant neoplasm of right kidney, except renal pelvis
CPT/HCPCS: 36415; 71260; 74177; 80053; 81001; 85025; 99214; Q9967

== ENCOUNTER 2024-01-06 06:01 | Outpatient (CLI) | payer MEDICARE, SELFPAY ==
--- NOTE | 2024-01-06 06:15 | USCV_ITS ---
Jinny Jackman Age: 73 Gender: F : 1950 Exam Date: 01/06/2024 06:15 Ordering Phys: Mechelle Barreto APRN Technologist: Exam Location: [facility] Indication: sob cp BP: 125 / 75 HR: 78 Rhythm: Sinus Technical Quality: Adequate MEASUREMENTS (Male / Female) Normal Values 2D ECHO LV Diastolic Diameter PLAX 5.1 cm 4.2 - 5.9 / 3.9 - 5.3 cm IVS Diastolic Thickness 1.1 cm 0.6 - 1.0 / 0.6 - 0.9 cm IVS Systolic Thickness 1.4 cm LVPW Diastolic Thickness 1.0 cm 0.6 - 1.0 / 0.6 - 0.9 cm LVPW Systolic Thickness 1.5 cm LVOT Diameter 2.2 cm LV Ejection Fraction 2D Teich 76.0 % LV Ejection Fraction MOD 4C 52.6 % LV Ejection Fraction MOD 2C 53.6 % LV Ejection Fraction 2C AL 56.0 % LA Diameter 3.4 cm RA Systolic Volume 4C AL 31.7 ml RA Systolic Volume 4C MOD 30.1 ml Aorta at Sinotubular Diameter 3.3 cm M-MODE LA Ao Ratio MM 1.3 AV Cusp Separation MM 2.2 cm DOPPLER AV Peak Velocity 118.0 cm/s LVOT Peak Velocity 84.0 cm/s AV Area Cont Eq vti 3.5 cm squared AV Area Cont Eq pk 2.7 cm squared MV Peak Velocity 98.0 cm/s MV Area PHT 3.7 cm squared Mitral E to A Ratio 0.8 TV Peak Velocity 200.5 cm/s TR Peak Velocity 225.0 cm/s TR Peak Gradient 20.3 mmHg TV Peak E Velocity 102.0 cm/s Right Atrial Pressure 3.0 mmHg Pulmonary Artery Systolic Pressu 23.3 mmHg PV Peak Velocity 87.0 cm/s FINDINGS Left Ventricle Normal LV size with slightly diminished ejection fraction of 53%. Mild hypokinesia of the basal inferior wall segment.Grade I/IV diastolic dysfunction (abnormal relaxation filling pattern), normal to mildly elevated filling pressures. Right Ventricle The right ventricle is normal in size and function. Right Atrium The right atrium is normal in size. Left Atrium The left atrium is normal in size. Mitral Valve No gross abnormalities noted Aortic Valve Thickened aortic valve. Tricuspid Valve Trace tricuspid valve regurgitation. Pulmonic Valve Pulmonic valve not well visualized. Pericardium Normal pericardium without effusion. Aorta Normal ascending aorta dimension. IVC Inferior vena cava not visualized. CONCLUSIONS Normal LV size with slightly diminished ejection fraction of 53%. Mild hypokinesia of the basal inferior wall segment.Grade I/IV diastolic dysfunction (abnormal relaxation filling pattern), normal to mildly elevated filling pressures. Thickened aortic valve. Trace tricuspid valve regurgitation. Estimated pulmonary artery peak systolic pressure within normal limits There is no pericardial effusion. Technically difficult study because of poor ultrasonic windows Dr Son Lange MD FACC (Electronically Signed) Final Date: 07 January 2024 22:42 S
== END 2024-01-06 06:02 | disposition home or self-care (01) ==
PROVIDERS: PCP Clinical Nurse Specialist Adult Health; Visit Provider Nurse Practitioner Family
DX: I50.30 Unspecified diastolic (congestive) heart failure (principal); I35.2 Nonrheumatic aortic (valve) stenosis with insufficiency; R06.02 Shortness of breath; R07.9 Chest pain, unspecified
CPT/HCPCS: 93306

== ENCOUNTER 2024-01-06 07:26 | Oncology outpatient (recurring) (ONCR) | payer MEDICARE, SELFPAY ==
[2024-01-06 08:17] LABS: Basophils # 0.1 10^3/uL (0.0-0.1); Basophils % 1.5 %; Eosinophils # 0.2 10^3/uL (0.0-0.8); Eosinophils % 2.6 %; Hematocrit 43.3 % (36-47); Lymphocytes # 1.5 10^3/uL (0.8-4.8); Mean Corpuscular HGB Conc 30.9 g/dL (30-55); Mean Corpuscular Hemoglobin 30.2 pg (27-33); Mean Corpuscular Volume 97.7 fl (85-98); Mean Platelet Volume 11.4 fL (7.4-10.4); Monocytes # 0.6 10^3/uL (0.2-0.9); Monocytes % 9.8 %; Neutrophils # 3.75 10^3/uL (1.8-7.7); Neutrophils % 61.9 %; Nucleated Red Blood Cells % 0 %; Platelet Count 238 10^3/cmm (157-399); Red Blood Count 4.43 10^6/uL (3.85-5.65); Red Cell Distribution Width 14.1 % (12.1-15.1); White Blood Count 6.05 10^3/uL (3.29-11.43)
[2024-01-06 08:51] LABS: Alanine Aminotransferase 18 U/L (0-33); Albumin Level 3.8 g/dL (3.5-5.2); Alkaline Phosphatase 151 U/L (35-105); Anion Gap 14.2 (5-19); Aspartate Amino Transferase 23 U/L (0-32); Blood Urea Nitrogen 14 mg/dL (8-23); Calcium 8.7 mg/dL (8.5-10.5); Carbon Dioxide 25 mmol/L (22-29); Chloride 108 mmol/L (98-107); Globulin 2.4 g/dL (1.3-4.6); Glucose 149 mg/dL (65-115); Osmolality Calculated 299 mOsm/kg (285-295); Potassium 4.2 mmol/L (3.5-5.1); Sodium 143 mmol/L (136-145); Total Bilirubin 0.2 mg/dL (0.15-1.2); Total Protein 6.2 g/dL (6.6-8.7)
[2024-01-06 09:21] LABS: Ferritin 121 ng/mL (15-150); Iron 47 ug/dL (37-145); Percent Saturation 15.7 % (20-50); Total Iron Binding Capacity 299 mcg/dl; Unsaturated Iron Binding 252 ug/dL (112-347)
== END 2024-02-05 23:59 | disposition home or self-care (01) ==
PROVIDERS: Nurse Practitioner Family; PCP Clinical Nurse Specialist Adult Health; Visit Provider Internal Medicine Hematology & Oncology
DX: D50.8 Other iron deficiency anemias (principal)
CPT/HCPCS: 36415; 80053; 82728; 83540; 83550; 85025

== ENCOUNTER 2024-02-07 11:03 | Inpatient (IN) | payer MEDICARE, SELFPAY ==
[2024-02-07] VITALS (34 sets, daily range): BP systolic 78–177; BP diastolic 52–123; PULSE 123–187; RESP 18–34; TEMP 36.2–36.7; O2SAT 89–98; BMI 42.7
--- NOTE | 2024-02-07 11:16 | XRR_ITS ---
PROCEDURE INFORMATION: Exam: XR Chest Exam date and time: 02/07/2024 11:18 AM Age: 73 years old Clinical indication: Shortness of breath; Chest pressure; Patient HX: PT C/O chest pain since 2200 last night, PT reports SOB with chest pain. PT denies cardiac HX. PT states she had echo done a few weeks ago. PT reports having HX of anemia. ; Additional info: Chest pain shortness of breath TECHNIQUE: Imaging protocol: Radiologic exam of the chest. Views: 1 view. COMPARISON: CT chest abdpel w/*[id number] 11/17/2023 9:39 AM FINDINGS: Lungs: Both lungs demonstrate diffuse interstitial coarsening .Mireya B lines are noted in both lung bases. No dense consolidation or mass noted. Pleural spaces: Unremarkable. No pleural effusion. No pneumothorax. Heart/Mediastinum: Mild cardiomegaly is noted. Bones/joints: Unremarkable. XR/XR chest 1V portable [id number] IMPRESSION: Findings suggesting mild CHF
--- NOTE | 2024-02-07 11:21 | ED_ITS ---
HPI - Chest Pain 2 General: Chief Complaint: Chest Pain Stated Complaint: chest pain, sob Time Seen by Provider: 02/07/24 11:16 History of Present Illness: 73-year-old female presents to the emerg ency room complaining of chest pain that began last night at 10 PM. She does not recall anything that seem to trigger to it. She has some mild shortness of breath. Patient has some anxiety and has palpitations. She has not noticed any increased swelling in her lower extremities she denies any orthopnea no known history of coronary artery disease she has not noticed anything that exacerbates the rapid heart rate but she does note with activity she gets more short of breath. Chest pain remained stable. She has not bladder mass that she is scheduled to have a procedure for in 3 days. She is not on any anticoagulants or negative ionotropic. Patient had dental work done approximately 1 week ago Associated symptoms: Reports dyspnea and palpitations; Deny abdominal pain or fever(s) Related Data Home Medications Medication Instructions Recorded Confirmed cholecalciferol (vitamin D3) 25 25 mcg PO DAILY 12/29/19 02/07/24 mcg (1,000 unit) capsule magnesium 250 mg tablet 250 mg PO DAILY 12/29/19 02/07/24 multivitamin (Daily Multi-Vitamin 1 tab PO DAILY 11/07/20 02/07/24 tablet) gabapentin 100 mg capsule 100 mg PO TID PRN joint pain 11/05/23 02/07/24 calcium carbonate 500 mg PO DAILY 02/07/24 02/07/24 Previous Rx's Medication Instructions Recorded gabapentin 300 mg capsule 300 mg PO TID #90 caps 09/23/23 hydroxychloroquine 200 mg tablet 200 mg PO BID #180 tabs 11/24/23 leflunomide 20 mg tablet 20 mg PO DAILY #30 tabs 11/24/23 tramadol 50 mg tablet 50 mg PO BEDTIME PRN pain #30 tabs 11/24/23 Allergies Allergy/AdvReac Type Severity Reaction Status Date / Time Penicillins Allergy Severe ALGY-Rash Verified 02/07/24 11:18 erythromycin base Allergy Unknown Verified 02/07/24 11:18 Review of Systems 2 Const: Denies: fever(s) or chills Card: Reports: chest pain, palpitations and irregular heart rhythm; Denies: edema or swelling of feet/ankles Resp: Reports: dyspnea GI: Denies: abdominal pain : Denies: dysuria, urinary frequency or urinary urgency Musc: Denies: neck pain or back pain Skin/Breast: Denies: rash PFSH ED 2 PFSH: Medical History Dysuria Renal cell carcinoma of right kidney Herpes labialis Elevated fasting glucose 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 anemia 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 Rash CKD (chronic kidney disease) Hx of melanoma of skin Rheumatoid arthritis Surgical History History of right nephrectomy History of appendectomy S/P cholecystectomy History of hysterectomy for cancer S/P gastroplasty Status post surgical removal of malignant neoplasm of skin Family History Mother Cancer Social History Smoking and tobacco/nicotine status: never used tobacco/nicotine Alcohol intake: never Substance/Drug Use: never Physical Exam 2 Const: COMMON NORMALS: no acute distress GENERAL APPEARANCE: cooperative and comfortable ORIENTATION/CONSCIOUSNESS: Yes awake, Yes oriented to person, Yes oriented to place and Yes oriented to time HENMT: COMMON NORMALS: normocephalic, atraumatic and hearing grossly normal bilaterally HEAD & SCALP: normocephalic and atraumatic Resp: COMMON NORMALS: normal respiratory effort, No retractions, No use of accessory muscles and clear to auscultation bilaterally AUSCULTATION: clear to auscultation bilaterally Cardio: COMMON NORMALS: No murmurs present (Cardio) RATE: tachycardic R HYTHM: abnormal rhythm irregularly irregular GI: COMMON NORMALS: Soft to palpation and No hepatosplenomegaly present A USCULTATION: Yes normoactive bowel sounds PALPATION: Yes Soft to palpation, No Tenderness to palpation present (GI), No Guarding due to palpation present (GI) and Yes No hepatosplenomegaly present Extremity: COMMON NORMALS: normal to inspection, capillary refill normal, no clubbing, cyanosis or edema, no calf tenderness and no pedal edema Neuro: SENSORIUM/ORIENTATION: Yes oriented to person, Yes oriented to place and Yes oriented to time Skin: COMMON NORMALS: no rashes or lesions noted GENERAL SKIN EXAM: no rashes or lesions noted Course 2 Vital Signs: Vital signs: Vital Signs Temperature 98.1 F 02/07/24 11:07 Pulse Rate 150 H 02/07/24 15:15 Respiratory Rate 26 H 02/07/24 15:15 Blood Pressure 128/95 02/07/24 15:15 Pulse Oximetry 92 02/07/24 15:15 Oxygen Delivery Me thod Nasal Cannula 02/07/24 15:09 Oxygen Flow Rate 4 02/07/24 14:38 MDM - Chest Pain Medical Decision Making Patient is A-fib with RVR. Chest x-ray shows a lot of cardiomegaly but ultrasound did not show significant pericardial effusion. Patient was given IV fluids and a small amount because of the increased anion gap. Cardizem failed to rate control as as an amiodarone consulted cardiology they recommended giving digoxin. Will admit the patient to the ICU hospitalist Dr. Ortiz to follow Dr. Raman to be consulted. A week prior she had dental work I did start her on ceftriaxone additionally she did have a mild cystitis. Medical Records I reviewed the patient's medical records. Lab Data I reviewed the patient's lab results. 02/07/24 11:21 02/07/24 11:21 Radiology Impressions Chest X-Ray 02/07/24 11:16 IMPRESSION: Findings suggesting mild CHF Laboratory Results WBC 11.85 10^3/uL (3.29-11.43) H 02/07/24 11:21 RBC 4.37 10^6/uL (3.85-5.65) 02/07/24 11:21 Hgb 13.30 g/dL (11.27-16.99) 02/07/24 11:21 Hct 41.5 % (36-47) 02/07/24 11:21 MCV 95.0 fl (85-98) 02/07/24 11:21 MCH 30.4 pg (27-33) 02/07/24 11:21 MCHC 32.0 g/dL (30-55) 02/07/24 11:21 RDW 14.0 % (12.1-15.1) 02/07/24 11:21 Plt Count 238 10^3/cmm (157-399) 02/07/24 11:21 MPV 12.0 fL (7.4-10.4) H 02/07/24 11:21 Neut % (Auto) 83.0 % 02/07/24 11:21 Lymph % (Auto) 9.4 % 02/07/24 11:21 [place] % (Auto) 6.4 % 02/07/24 11:21 Eos % (Auto) 0.1 % 02/07/24 11:21 Baso % (Auto) 0.7 % 02/07/24 11:21 Neut # (Auto) 9.84 10^3/uL (1.8-7.7) H 02/07/24 11:21 Lymph # (Auto) 1.1 10^3/uL (0.8-4.8) 02/07/24 11:21 [place] # (Auto) 0.8 10^3/uL (0.2-0.9) 02/07/24 11:21 Eos # (Auto) 0.0 10^3/uL (0.0-0.8) 02/07/24 11:21 Baso # (Auto) 0.1 10^3/uL (0.0-0.1) 02/07/24 11:21 Nucleated RBC % (auto) 0 % 02/07/24 11:21 Nucleated RBCs # 0.0 /100WBC 02/07/24 11:21 ESR 18 mm/hr (0-15) H 02/07/24 11:21 D-Dimer 0.42 ug/mLFEU (0-0.59) 02/07/24 11:21 Sodium 137 mmol/L (136-145) 02/07/24 11:21 Potassium 4.4 mmol/L (3.5-5.1) 02/07/24 11:21 Chloride 104 mmol/L (98-107) 02/07/24 11:21 Carbon Dioxide 16 mmol/L (22-29) L 02/07/24 11:21 Anion Gap 21.4 (5-19) H 02/07/24 11:21 BUN 21 mg/dL (8-23) 02/07/24 11:21 Creatinine 1.1 mg/dL (0.5-0.9) H 02/07/24 11:21 GFR Calculation Not Reportable 02/07/24 11:21 Glucose 168 mg/dL (65-115) H 02/07/24 11:21 Calculated Osmolality 291 mOsm/kg (285-295) 02/07/24 11:21 Lactic Acid 1.7 mmol/L (0.5-2.2) 02/07/24 13:28 Calcium 9.1 mg/dL (8.5-10.5) 02/07/24 11:21 Iron 35 ug/dL (37-145) L 02/07/24 13:28 TIBC 335 mcg/dl 02/07/24 13:28 % Saturation 10.4 % (20-50) L 02/07/24 13:28 Unsat Iron Binding 300 ug/dL (112-347) 02/07/24 13:28 Total Bilirubin 0.3 mg/dL (0.15-1.2) 02/07/24 11:21 AST 29 U/L (0-32) 02/07/24 11:21 ALT 18 U/L (0-33) 02/07/24 11:21 Alkaline Phosphatase 115 U/L (35-105) H 02/07/24 11:21 Troponin T Baseline 51 ng/L (0-10) H 02/07/24 11:21 Troponin T 120 Minute 44.92 ng/L (0-10) H 02/07/24 13:28 Delta Troponin T -6.08 ABS# (0-10) L 02/07/24 13:28 C-Reactive Protein 9.8 mg/L (0.0-4.9) H 02/07/24 11:21 Total Protein 6.2 g/dL (6.6-8.7) L 02/07/24 11:21 Albumin 4.0 g/dL (3.5-5.2) 02/07/24 11:21 Globulin 2.2 g/dL (1.3-4.6) 02/07/24 11:21 Vitamin B12 Cancelled 02/07/24 13:28 TSH 1.69 uIU/mL (0.27-4.20) 02/07/24 13:28 Urine Color Yellow (Yellow) 02/07/24 12:28 Urine Appearance Clear (CLEAR) 02/07/24 12:28 Urine pH 6.0 (5-7) 02/07/24 12:28 Ur Specific [place] 1.008 (1.005-1.030) 02/07/24 12:28 Urine Protein Trace (Negative) A 02/07/24 12:28 Urine Glucose (UA) Negative (Normal) 02/07/24 12:28 Urine Ketones Negative (Negative) 02/07/24 12:28 Urine Blood 3+ (Negative) A 02/07/24 12:28 Urine Nitrate Negative (Negative) 02/07/24 12:28 Urine Bilirubin Negative (Negative) 02/07/24 12:28 Urine Urobilinogen 0.2 mg/dL (Negative) 02/07/24 12:28 Ur Leukocyte Esterase Trace (Negative) A 02/07/24 12:28 Urine RBC 21-50 /hpf (0-2) H 02/07/24 12:28 Urine WBC 11-20 /hpf (0-5) H 02/07/24 12:28 Ur Squamous Epith Cells 0-5 /hpf (0-5) 02/07/24 12:28 Amorphous Sediment Not Reportable 02/07/24 12:28 Urine Bacteria None seen /hpf (NONE) 02/07/24 12:28 Hyaline Casts 0.40 /lpf 02/07/24 12:28 Digoxin 0.4 ng/mL (0.6-1.2) L 02/07/24 11:21 All radiology interpretation(s) finalized by discharge Discharge Plan Discharge Patient Disposition: Admitted As Inpatient Admit Provider: Rigoberto Evans Clinical Impression: Atrial fibrillation with RVR, Cystitis, Cardiomegaly Condition: Stable Coding Level of Care Code ED Carbonator for Magdaleno Walker
[2024-02-07 11:29] LABS: Basophils # 0.1 10^3/uL (0.0-0.1); Basophils % 0.7 %; Eosinophils % 0.1 %; Hematocrit 41.5 % (36-47); Lymphocytes # 1.1 10^3/uL (0.8-4.8); Lymphocytes % 9.4 %; Mean Corpuscular Hemoglobin 30.4 pg (27-33); Monocytes # 0.8 10^3/uL (0.2-0.9); Monocytes % 6.4 %; Neutrophils # 9.84 10^3/uL (1.8-7.7); Nucleated Red Blood Cells % 0 %; Platelet Count 238 10^3/cmm (157-399); Red Blood Count 4.37 10^6/uL (3.85-5.65); White Blood Count 11.85 10^3/uL (3.29-11.43)
[2024-02-07] MEDS: dilTIAZem 5 mg/mL SDV 5 mL 20 MG IVP (11:29)
[2024-02-07] MEDS: dilTIAZem 100 MG in sodium chloride 0.9% (add-van) 100 ML IV (11:29)
--- NOTE | 2024-02-07 11:41 | USCV_ITS ---
Jinny Jackman Age: 73 Gender: F : 1950 Exam Date: 02/07/2024 13:53 Ordering Phys: Steven Krause DO Technologist: Dereck Olvera Exam Location: [facility] [place] Indication: check for fluid only BP: / HR: Rhythm: Sinus Technical Quality: Adequate MEASUREMENTS (Male / Female) Normal Values FINDINGS Left Ventricle Right Ventricle Right Atrium Left Atrium Mitral Valve Aortic Valve Tricuspid Valve Pulmonic Valve Pericardium Aorta IVC CONCLUSIONS Limited echo to check pericardial fluid. Chest x-ray suggestive of pericardial fluid. Patient is in atrial fibrillation with rapid ventricular rate, heart rate 1 50-1 60s. 1. There is a small pericardial fluid mainly around the anterior surface of the heart. 2. Left atrium and left ventricle appears to be dilated. 3. Difficult to assess accurately LV systolic function in the setting of atrial fibrillation with rapid ventricular rate. However LV systolic function appears to be reduced. Recommend to repeat echocardiogram once heart rate is better controlled. Jasmina Raman MD (Electronically Signed) Final Date: 07 February 2024 16:44 S
--- NOTE | 2024-02-07 11:47 | PC.NURSE ---
Dr. Krause gave this nurse a verbal order to increase Cardizem to 10 ml/hr.
[2024-02-07 11:48] LABS: Troponin(5th) Baseline 51 ng/L (0-10)
[2024-02-07 11:51] LABS: Erythrocyte Sedimentation Rate 18 mm/hr (0-15)
[2024-02-07 11:54] LABS: Alanine Aminotransferase 18 U/L (0-33); Alkaline Phosphatase 115 U/L (35-105); Anion Gap 21.4 (5-19); Aspartate Amino Transferase 29 U/L (0-32); Blood Urea Nitrogen 21 mg/dL (8-23); Calcium 9.1 mg/dL (8.5-10.5); Carbon Dioxide 16 mmol/L (22-29); Chloride 104 mmol/L (98-107); Creatinine Clr Calc Pharmacy 70.4751; Globulin 2.2 g/dL (1.3-4.6); Glucose 168 mg/dL (65-115); Osmolality Calculated 291 mOsm/kg (285-295); Potassium 4.4 mmol/L (3.5-5.1); Sodium 137 mmol/L (136-145); Total Bilirubin 0.3 mg/dL (0.15-1.2); Total Protein 6.2 g/dL (6.6-8.7)
[2024-02-07 11:56] LABS: C Reactive Protein 9.8 mg/L (0.0-4.9)
[2024-02-07] MEDS: amiodarone 150 MG/100 ML PREMIX 400 MG IV (12:38)
[2024-02-07 12:41] LABS: Bilirubin Urine Negative (Negative); Blood Urine 3+ (Negative); Glucose Urine UA Negative (Normal); Ketones Urine Negative (Negative); Leukocyte Esterase Urine Trace (Negative); Nitrate Urine Negative (Negative); Protein Urine Trace (Negative); Specific Gravity, Urine 1.008 (1.005-1.030); Urine Appearance Clear (CLEAR); Urine Color Yellow (Yellow); Urobilinogen Urine 0.2 mg/dL (Negative)
[2024-02-07 12:46] LABS: Add Urine Microscopic? YES; Bacteria Urine None Seen /hpf; RBC Urine 21-50 /hpf (0-2); Squamous Epithelial Cell Urine 0-5 /hpf (0-5)
[2024-02-07 12:50] LABS: Add Urine Culture? Yes
--- NOTE | 2024-02-07 13:16 | ECG_ITS ---
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 Measurements Intervals [place] Rate: 188 P: 0 NV: 0 QRS: 76 QRSD: 86 T: 0 QT: 207 QTc: 367 Interpretive Statements ATRIAL FIBRILLATION WITH RAPID VENTRICULAR RESPONSE NONSPECIFIC T-WAVE ABNORMALITY CRITICAL TEST RESULT No previous ECG available for comparison Electronically Signed On 02-07-2024 13:38:45 CDT by Jasmina Raman M.D. [email or web address]
[2024-02-07] MEDS: sodium chloride 0.9% 500 ML IV (13:30)
[2024-02-07 13:57] LABS: Digoxin 0.4 ng/mL (0.6-1.2)
[2024-02-07 14:05] LABS: Lactic Sepsis W/Reflex 1.7 mmol/L (0.5-2.2); Troponin 5 2HR 44.92 ng/L (0-10); Troponin 5 2HR Delta -6.08 ABS# (0-10)
--- NOTE | 2024-02-07 14:28 | ECG_ITS ---
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 Measurements Intervals [place] Rate: 149 P: 0 GA: 0 QRS: 73 QRSD: 87 T: 48 QT: 305 QTc: 481 Interpretive Statements ATRIAL FIBRILLATION WITH RAPID VENTRICULAR RESPONSE WITH ABERRANT CONDUCTION OR VENTRICULAR PREMATURE COMPLEXES NONSPECIFIC T-WAVE ABNORMALITY ABNORMAL RHYTHM ECG Compared to ECG 02/07/2024 11:05:59 Ventricular premature complex(es) now present Aberrant conduction of supraventricular beat(s) now present T-wave abnormality still present Electronically Signed On 02-08-2024 14:07:48 STATEMENT CLERK by Jasmina Raman M.D. [email or web address]
[2024-02-07] MEDS: digoxin 250 mcg/ml INJ 2 mL 500 MCG IVP (14:53)
[2024-02-07 15:08] LABS: D Dimer 0.42 ug/mLFEU (0-0.59)
[2024-02-07 15:23] LABS: Iron 35 ug/dL (37-145); Thyroid Stimulating Hormone 1.69 uIU/mL (0.27-4.20)
--- NOTE | 2024-02-07 15:27 | CTR_ITS ---
PROCEDURE INFORMATION: Exam: CT Chest Without Contrast; Diagnostic Exam date and time: 02/07/2024 5:23 PM Age: 73 years old Clinical indication: Shortness of breath; Additional info: Shortness of breath, cardiomegaly, , concerns of pericardial effusion TECHNIQUE: Imaging protocol: Diagnostic computed tomography of the chest without contrast. Radiation optimization: All CT scans at this facility use at least one of these dose optimization techniques: automated exposure control; mA and/or kV adjustment per patient size (includes targeted exams where dose is matched to clinical indication); or iterative reconstruction. COMPARISON: CT chest abdpel w/*[id number] 11/17/2023 9:39 AM RADIATION DOSE METRICS: Total DLP (mGy-cm): 710.12 FINDINGS: Lungs: Patchy infiltrates are noted throughout both lungs with diffuse septal edema. Pleural spaces: Moderate pleural effusions are noted bilaterally. Heart: Moderate cardiomegaly is noted. Coronary arteries: Coronary artery calcifications are noted. Lymph nodes: Calcified lymph nodes are noted in the mediastinum. Vasculature: Unremarkable. No aortic aneurysm. Bones/joints: Unremarkable. No acute fracture. Soft tissues: Unremarkable. CT/CT chest wo con [id number] IMPRESSION: CHF with pleural effusions
[2024-02-07] MEDS: linezolid 600 mg Tablet PO (15:28)
[2024-02-07] MEDS: pantoprazole 40 mg SDV IVP (15:28)
[2024-02-07] MEDS: water for injection-sterile 10 ML 1000 ML (15:29)
[2024-02-07] MEDS: meropenem 1,000 mg SDV 1000 MG IVP ×2 (15:29→23:10)
[2024-02-07 15:30] LABS: Percent Saturation 10.4 % (20-50); Total Iron Binding Capacity 335 mcg/dl; Unsaturated Iron Binding 300 ug/dL (112-347)
[2024-02-07] MEDS: acetaminophen 325 mg Tablet 650 MG PO (15:46)
[2024-02-07 15:51] LABS: Procalcitonin 0.07 ng/mL (0-0.5)
--- NOTE | 2024-02-07 16:33 | P.HP_ITS ---
Providers/Chief Complaint 2 Admitting Physician: Rigoberto Evans MD Primary Care Provider: Balbir Owens Chief Complaint: chest pain, sob History of Present Illness Jinny Jackman is a 73 year old female with past medical history of recurrent UTI, renal cell carcinoma, single kidney, recurrent anemia, past history of cervical cancer, skin cancer, recurrent hematuria with recent diagnosis of bladder cancer for which she is to follow-up with urologist next week for tumor resection patient to the ER today because of chest pain, difficulty in breathing which has been getting worse since yesterday evening. Symptoms are associated with palpitations, mild orthopnea. Patient has had sleep studies in the past which has been tested negative. In the ER she was found to have atrial fibrillation with rapid ventricular response for which she was started on Cardizem drip after Cardizem bolus without any help with her heart rate and drop in blood pressures and she was transitioned over to amiodarone bolus and drip. Review of Systems 2 General: Reports: 10 or more systems reviewed and unremarkable except in HPI and below Const: Denies: fever(s), chills, body aches, change in appetite, change in weight, malaise, night sweats, diaphoresis, change in sleep pattern, daytime sleepiness or snoring Eyes: Denies: change in vision, blurry vision, photophobia, eye discomfort or eye discharge ENMT: Denies: throat pain, enlarged tonsils, hoarseness, mouth pain, oral sores, dry mouth, tinnitus, nasal congestion or post nasal drip Card: Denies: chest pain, palpitations, irregular heart rhythm, edema, swelling of feet/ankles, lightheadedness, syncope, pre-syncope, dyspnea on exertion, orthopnea, leg pain with exertion or acrocyanosis Resp: Denies: dyspnea, productive cough, non-productive cough, wheezing, stridor, pain on inspiration, change in phlegm color, hemoptysis or chest congestion GI: Denies: abdominal pain, nausea, vomiting, hematemesis, coffee ground emesis, dysphagia, heartburn, diarrhea, constipation, bloating, GI cramping, change in bowel habits, pain on defecation, hematochezia or melena : Denies: flank pain, dysuria, urinary frequency, urinary urgency, urinary hesitancy, nocturia or hematuria Musc: Denies: neck pain, back pain, extremity pain, joint pain, joint swelling, joint redness, joint stiffness or limited range of motion Neuro: Denies: headache(s), numbness in extremities, weakness in extremities, sensory changes, lack of coordination, difficulty walking, frequent falls, dizziness, vertigo, confusion, Slurred speech present, difficulty communicating thoughts or seizure-like activity Psych: Denies: anxiety, depression, mood swings, panic attacks, hopelessness or irritability Endo: Denies: polyuria, polydipsia, tired all the time, cold intolerance, excessive sweating, flushing or heat intolerance Castillo/Lymph: Denies: easy bruising or easy bleeding All/Imm: Denies: tongue swelling, facial swelling or acute wheezing Medications/Allergies Home Medications Medication Instructions Recorded Confirmed Last Taken Type cholecalciferol (vitamin D3) 25 25 mcg PO DAILY 12/29/19 02/07/24 07/30/22 History mcg (1,000 unit) capsule magnesium 250 mg tablet 250 mg PO DAILY 12/29/19 02/07/24 02/06/24 History multivitamin (Daily Multi-Vitamin 1 tab PO DAILY 11/07/20 02/07/24 02/06/24 History tablet) gabapentin 300 mg capsule 300 mg PO TID #90 caps 09/23/23 02/07/24 02/06/24 Rx gabapentin 100 mg capsule 100 mg PO TID PRN joint pain 11/05/23 02/07/24 Unknown History hydroxychloroquine 200 mg tablet 200 mg PO BID #180 tabs 11/24/23 02/07/24 02/07/24 Rx leflunomide 20 mg tablet 20 mg PO DAILY #30 tabs 11/24/23 02/07/24 02/07/24 Rx tramadol 50 mg tablet 50 mg PO BEDTIME PRN pain #30 tabs 11/24/23 02/07/24 Unknown Rx calcium carbonate 500 mg PO DAILY 02/07/24 02/07/24 02/06/24 History Allergies Allergy/AdvReac Type Severity Reaction Status Date / Time Penicillins Allergy Severe ALGY-Rash Verified 02/07/24 11:18 erythromycin base Allergy Unknown Verified 02/07/24 11:18 PFSH Acute 2 PFSH: Medical History (Updated 02/07/24 @ 17:21 by Rigoberto Evans MD) Single kidney Dysuria Renal cell carcinoma of right kidney Herpes labialis Elevated fasting glucose 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 Rash CKD (chronic kidney disease) Hx of melanoma of skin Rheumatoid arthritis Surgical History (Updated 02/07/24 @ 17:21 by Rigoberto Evans MD) History of nephrectomy History of right nephrectomy History of appendectomy S/P cholecystectomy History of hysterectomy for cancer S/P gastroplasty Status post surgical removal of malignant neoplasm of skin Family History Mother Cancer Social History Smoking and tobacco/nicotine status: never used tobacco/nicotine Alcohol intake: never Substance/Drug Use: never Vitals/I&O/Wt Last Vital Signs Temp 98.1 F 02/07/24 11:07 Pulse 148 H 02/07/24 16:00 Resp 28 H 02/07/24 16:00 BP 155/103 02/07/24 16:00 Pulse Ox 92 02/07/24 16:00 O2 Del Method Nasal Cannula 02/07/24 15:09 O2 Flow Rate 4 02/07/24 14:38 02/07/24 02/07/24 02/07/24 06:59 14:59 22:59 Intake Total 612.00 / 612.00 2.00 Balance 612.00 / 612.00 2.00 Weight last 48 hrs Weight 135.171 kg Weight 135.171 kg Physical Exam 2 Narrative: General: No acute distress, AO x3 HEENT: PERRLA, pupils bilaterally equal and reactive Chest: Normal vesicular breath sounds, no added sounds, equal good air entry bilaterally CVS: S1-S2 regular, no murmurs, no tachycardia, no gallops, no rubs Abdomen: Soft, nontender, no organomegaly, bowel sounds present Neuro: No focal deficits, no facial deformity, AO x3, power 5/5 in all limbs Urinary Catheter Management: Cunningham: Cath Placed During This Visit: yes Urinary Catheter Date of Insertion: 02/07/24 Urinary Catheter Time of Insertion: 13:51 Data 02/07/24 11:21 02/07/24 11:21 Micro: Microbiology 02/07/24 12:04 Blood Culture - Preliminary Blood SPECIMEN COLLECTED 02/07/24 12:02 Blood Culture - Preliminary Blood SPECIMEN COLLECTED A&P Assessment and plan (1) Atrial fibrillation with RVR: New diagnosis. Failed Cardizem in the ER. Plan for amiodarone drip after bolus. Already received 500 mcg of digoxin in the ER. Will finish the loading with 250 mcg every 6 hourly for 2 doses after 6 hours. Check digoxin levels in AM. Cardiology consulted from the ER. Will plan to start on metoprolol 25 mg twice daily if blood pressure stable. Check D-dimer. Appreciate TSH, ESR. Eleazar vas score: More than 2. Discussed in detail with the patient regarding need for anticoagulation for stroke prevention. Patient does have a history of recurrent hematuria in the past both microscopic and slime. Discussed about possible need for anticoagulation for short-term as there is a chance that she might need cardioversion along with possible need for long-term anticoagulation for stroke prevention. Patient is agreeable for short-term anticoagulation with heparin. She understands the risk for hematuria. Patient would like to think further for long-term anticoagulation would like to start only after bladder tumor resection. Start on heparin drip without bolus. (2) Cardiomegaly: Seen on chest x-ray. Last echocardiogram from 1024 shows an EF 53%, mild hypokinesia of inferior basal wall, grade 1 diastolic dysfunction. Will request early limited echocardiogram to rule out pericardial effusion. (3) Cystitis: History of UTI with Staphylococcus in the past. Appreciate sensitivities from culture history. Start on linezolid 600 twice daily along with IV meropenem. Patient is allergic to penicillin. Follow-up blood culture, urine culture. (4) Shortness of breath: Most likely in setting of congestive heart failure. Check D-dimer, proBNP, CT chest without contrast. Appreciate recent echocardiogram from 01/28. Getting repeat echocardiogram as above. Patient's blood pressures are better. Can start on diuresis. (5) CHF (congestive heart failure): Strict input output charting, daily weights. Cunningham catheterization. Lasix 40 mg IV stat. Fluid restriction up to 1500 cc. (6) History of nephrectomy: (7) Single kidney: Monitor for renal functions. Baseline creatinine seems to be 1.1-1.4. Renal functions at baseline for now. Monitor daily. (8) Rheumatoid arthritis: (9) Renal cell carcinoma of right kidney: Plan Chest pain: Most likely in setting of congestive heart failure. Check A1c, lipid panel. Next likely non-ST elevation [place]. Cycle troponins. CODE STATUS: Full code Cardiac diet Full dose heparin will be sufficient for DVT prophylaxis Protonix for PUD prophylaxis Attestations 2 Medical Necessity Statement*: Admission for more than 2 midnights for management of atrial fibrillation with rapid ventricular response, shortness of breath in setting of congestive heart failure, cardiomegaly Diagnoses Atrial fibrillation with RVR I48.91 Cardiomegaly I51.7 Cystitis N30.90 Shortness of breath R06.02 CHF (congestive heart failure) I50.9 History of nephrectomy Z90.5 Single kidney Z90.5 Rheumatoid arthritis M06.9 Renal cell carcinoma of right kidney C64.1
--- NOTE | 2024-02-07 16:48 | P.CONIM_ITS ---
Providers/Reason For Consult 2 Consulting Physician/Specialty*: Dr. Raman/cardiology Reason for Consult*: Atrial fibrillation with rapid ventricular rate Requesting Physician: Dr. Krause Attending Physician: Rigoberto Evans MD Primary Care Provider: Balbir Owens History of Present Illness History of Present Illness Jinny Jackman is a 73 year old female with no significant previous cardiac history presented to the ER with shortness of air, chest tightness for last 12 hours. EKG showed atrial fibrillation with rapid ventricular rate. Patient hemodynamically was somewhat unstable with blood pressure on the lower side systolic 100-110. She has been treated so far initially with the Cardizem which she did not make any change in the heart rate and subsequently she started on the amiodarone and also been given a dose of digoxin. Currently she is on IV amiodarone infusion. Patient with medical history significant for cure from her renal cell carcinoma couple of years ago and more recently about a month ago she was diagnosed to have some bladder tumor for which she is planned to have cystoscopy procedure with the possibility of removal of mass. The final diagnosis of bladder mass has not been confirmed yet as no biopsy has been done. At present patient is overall stable with a blood pressure in the range of 120- 130 systolic heart rate 120s to 140s atrial fibrillation. Currently she is on amiodarone infusion as per protocol. Patient tells me she has been having some shortness of air and swelling of lower extremities for last couple of months. However she concentrated more on the issue of hematuria. A chest x-ray looked quite suspicious of pericardial effusion because of his significant cardiomegaly. Stat echo was just done in the ER which showed a very minimal pericardial effusion around the anterior surface. However left atrium and LV both look enlarged with reduced LV systolic function. With the atrial fibrillation and rapid ventricular rate LV function could not be assessed accurately. Review of Systems 2 Narrative: Detailed 10 point systemic review unremarkable except for as mentioned above in the history of present illness. Medications/Allergies Home Medications Medication Instructions Recorded Confirmed Last Taken Type cholecalciferol (vitamin D3) 25 25 mcg PO DAILY 12/29/19 02/07/24 07/30/22 History mcg (1,000 unit) capsule magnesium 250 mg tablet 250 mg PO DAILY 12/29/19 02/07/24 02/06/24 History multivitamin (Daily Multi-Vitamin 1 tab PO DAILY 11/07/20 02/07/24 02/06/24 History tablet) gabapentin 300 mg capsule 300 mg PO TID #90 caps 09/23/23 02/07/24 02/06/24 Rx gabapentin 100 mg capsule 100 mg PO TID PRN joint pain 11/05/23 02/07/24 Unknown History hydroxychloroquine 200 mg tablet 200 mg PO BID #180 tabs 11/24/23 02/07/24 02/07/24 Rx leflunomide 20 mg tablet 20 mg PO DAILY #30 tabs 11/24/23 02/07/24 02/07/24 Rx tramadol 50 mg tablet 50 mg PO BEDTIME PRN pain #30 tabs 11/24/23 02/07/24 Unknown Rx calcium carbonate 500 mg PO DAILY 02/07/24 02/07/24 02/06/24 History Allergies Allergy/AdvReac Type Severity Reaction Status Date / Time Penicillins Allergy Severe ALGY-Rash Verified 02/07/24 11:18 erythromycin base Allergy Unknown Verified 02/07/24 11:18 Current Medications Generic Name Dose Route Start Last Admin Trade Name Freq PRN Reason Stop Dose Admin Acetaminophen 650 mg 02/07/24 14:47 02/07/24 15:46 Acetaminophen 325 Mg Tablet PO 650 mg Q6H PRN Administration Mild/Mod Pain Or Temp >/= 101 Amiodarone HCl/Dextrose 360 mg in 200 mls @ 0 mls/hr 02/07/24 12:30 02/07/24 13:14 Nexterone IV 1 mg/min .Q0M SWETA 33.33 mls/hr Administration Protocol Per Protocol Linezolid 600 mg 02/07/24 15:00 02/07/24 15:28 Linezolid 600 Mg Tablet PO 600 mg Q12H SWETA Administration Protocol Meropenem 1,000 mg 02/07/24 15:00 02/07/24 15:29 Meropenem 1,000 Mg Sdv IVP 1,000 mg Q8H SWETA Administration Protocol Pantoprazole Sodium 40 mg 02/07/24 15:00 02/07/24 15:28 Pantoprazole 40 Mg Sdv IVP 40 mg Q24H SWETA Administration PFSH Acute 2 PFSH: Medical History Dysuria Renal cell carcinoma of right kidney Herpes labialis Elevated fasting glucose 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 Rash CKD (chronic kidney disease) Hx of melanoma of skin Rheumatoid arthritis Surgical History History of right nephrectomy History of appendectomy S/P cholecystectomy History of hysterectomy for cancer S/P gastroplasty Status post surgical removal of malignant neoplasm of skin Family History Mother Cancer Social History Smoking and tobacco/nicotine status: never used tobacco/nicotine Alcohol intake: never Substance/Drug Use: never Vitals/I&O/Wt Last Vital Signs Temp 98.1 F 02/07/24 11:07 Pulse 148 H 02/07/24 16:00 Resp 28 H 02/07/24 16:00 BP 155/103 02/07/24 16:00 Pulse Ox 92 02/07/24 16:00 O2 Del Method Nasal Cannula 02/07/24 15:09 O2 Flow Rate 4 02/07/24 14:38 02/07/24 02/07/24 02/07/24 06:59 14:59 22:59 Intake Total 612.00 / 612.00 2.00 Balance 612.00 / 612.00 2.00 Weight last 48 hrs Weight 298 lb Weight 298 lb Physical Exam 2 Narrative: Patient laying comfortably now. Not in any acute respiratory distress. Const: COMMON NORMALS: no acute distress, patient oriented x3 and alert HENMT: OTHER: Unremarkable. Eye: OTHER: Normal Resp: OTHER: Good air entry bilaterally. Minimal rales at the bases bilaterally. No added sounds. Cardio: OTHER: Irregularly irregular pulse atrial fibrillation. Difficult to assess for JVD. 1+ pitting edema bilaterally at the ankles. Cardiac exam first and second heart sounds. Difficult to assess for any murmur with atrial fibrillation with rapid ventricular rate. GI: OTHER: Soft nontender abdomen. Bowel sounds audible normal Extremity: NARRATIVE EXTREMITY EXAM: 1+ pitting edema bilaterally. Distal pu lses palpable. Neuro: COMMON NORMALS: patient oriented x3 SENSORIUM/ORIENTATION: Yes alert OTHER: Grossly intact. Patient moves all 4 limbs. Skin: NARRATIVE SKIN EXAM: Skin warm and dry. Urinary Catheter Management: Cunningham: Cath Placed During This Visit: yes Urinary Catheter Date of Insertion: 02/07/24 Urinary Catheter Time of Insertion: 13:51 Data 02/07/24 11:21 02/07/24 11:21 Micro: Microbiology 02/07/24 12:04 Blood Culture - Preliminary Blood SPECIMEN COLLECTED 02/07/24 12:02 Blood Culture - Preliminary Blood SPECIMEN COLLECTED A&P Assessment and plan (1) Atrial fibrillation with RVR: 73-year-old female patient with around 12 hours history of palpitation with shortness of air. 1. Atrial fibrillation with rapid ventricular rate. 2. Clinically no acute ischemia. 3. Currently patient is undergoing investigation for a bladder mass, possible tumor.. 4. Ongoing history of hematuria for couple of months however her hemoglobin is now stable around 13.5. Plan: To continue amiodarone IV infusion for now. I will add oral beta-chely starting with middle 25 mg twice a day. Considering current state of atrial fibrillation with rapid ventricular rate and apparently low LVEF, patient needs to be on anticoagulation. However considering her history of hematuria and currently ongoing investigation including cystoscopy in near future, long-term anticoagulation might not be a perfect choice for her. Will plan to start her intravenous heparin at least for now. Plan would be to convert atrial fibrillation to sinus rhythm to avoid long-term anticoagulation. (2) Cardiomegaly: Coding Level of Care Code 61517 Diagnoses Atrial fibrillation with RVR I48.91 Cardiomegaly I51.7 Time Spent (min) 35
--- NOTE | 2024-02-07 16:57 | ECG_ITS ---
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 Measurements Intervals [place] Rate: 136 P: 0 PA: 0 QRS: 74 QRSD: 91 T: 0 QT: 305 QTc: 459 Interpretive Statements ATRIAL FIBRILLATION WITH RAPID VENTRICULAR RESPONSE WITH ABERRANT CONDUCTION OR VENTRICULAR PREMATURE COMPLEXES NONSPECIFIC T-WAVE ABNORMALITY ABNORMAL RHYTHM ECG Compared to ECG 02/07/2024 14:28:14 No significant changes Electronically Signed On 02-08-2024 14:15:01 OIL DIPPER by Jasmina Raman M.D. [id number]
[2024-02-07] MEDS: metoprolol tartrate 25 mg Tablet PO (16:58)
[2024-02-07] MEDS: FUROsemide 10 mg/mL SDV 4mL 40 MG IVP (17:57)
[2024-02-07] MEDS: heparin drip 25,000 UNIT/500 ML PREMIX 38 UNIT IV (17:58)
[2024-02-07 18:13] LABS: Troponin 5 6HR 48.72 ng/L (0-10)
[2024-02-07 18:14] LABS: Troponin 5 6HR Delta -2.28 ng/L (0-12)
[2024-02-07] MEDS: morphine 4 mg/mL SDV 1 mL 2 MG IVP ×2 (18:41→22:46)
[2024-02-07] MEDS: digoxin 250 mcg/ml INJ 2 mL IVP (20:46)
[2024-02-07] MEDS: metoprolol tartrate 1 mg/1 mL SDV 5 mL 10 MG IVP (23:08)
[2024-02-07 23:37] LABS: Partial Thromboplastin Time 45.7 SECONDS (23.9-36.7)
[2024-02-08] VITALS (24 sets, daily range): BP systolic 91–125; BP diastolic 54–80; PULSE 60–136; RESP 16–29; TEMP 36.1–36.3; O2SAT 91–98; BMI 43.9
--- NOTE | 2024-02-08 01:03 | PC.NURSE ---
Change from daylight savings time to central standard time.
[2024-02-08] MEDS: metoprolol tartrate 1 mg/1 mL SDV 5 mL 10 MG IVP (01:28)
[2024-02-08] MEDS: acetaminophen 325 mg Tablet 650 MG PO ×2 (01:42→13:59)
[2024-02-08] MEDS: morphine 4 mg/mL SDV 1 mL 2 MG IVP (03:19)
[2024-02-08] MEDS: linezolid 600 mg Tablet PO (03:19)
[2024-02-08] MEDS: heparin drip 25,000 UNIT/500 ML PREMIX 41 UNIT IV (05:35)
[2024-02-08 06:35] LABS: Partial Thromboplastin Time 61.2 SECONDS (23.9-36.7)
[2024-02-08 06:38] LABS: Basophils # 0.1 10^3/uL (0.0-0.1); Basophils % 0.6 %; Eosinophils # 0.1 10^3/uL (0.0-0.8); Eosinophils % 0.7 %; Hematocrit 38.9 % (36-47); Lymphocytes # 1.4 10^3/uL (0.8-4.8); Lymphocytes % 12.4 %; Mean Corpuscular HGB Conc 31.6 g/dL (30-55); Mean Corpuscular Hemoglobin 31.1 pg (27-33); Mean Corpuscular Volume 98.5 fl (85-98); Mean Platelet Volume 12.1 fL (7.4-10.4); Monocytes # 1.1 10^3/uL (0.2-0.9); Monocytes % 10.1 %; Neutrophils # 8.34 10^3/uL (1.8-7.7); Neutrophils % 75.8 %; Nucleated Red Blood Cells % 0 %; Platelet Count 205 10^3/cmm (157-399); Red Blood Count 3.95 10^6/uL (3.85-5.65); Red Cell Distribution Width 14.4 % (12.1-15.1)
[2024-02-08 06:42] LABS: Chol HDL Ratio 2.79 mg/dL (0.0-4.40); Cholesterol 106 mg/dL (0-200); HDL Cholesterol 38 mg/dL (60-100); LDL Cholesterol Calculated 52 mg/dL (50-129); LDL HDL Ratio 1.37 RATIO (0.00-3.22); Triglycerides 78 mg/dL (0-150)
[2024-02-08 06:43] LABS: Alanine Aminotransferase 15 U/L (0-33); Albumin Level 3.3 g/dL (3.5-5.2); Alkaline Phosphatase 97 U/L (35-105); Anion Gap 15.1 (5-19); Aspartate Amino Transferase 25 U/L (0-32); Blood Urea Nitrogen 16 mg/dL (8-23); Carbon Dioxide 22 mmol/L (22-29); Chloride 106 mmol/L (98-107); Globulin 2.4 g/dL (1.3-4.6); Glucose 122 mg/dL (65-115); Magnesium 1.9 mg/dL (1.7-2.3); Osmolality Calculated 290 mOsm/kg (285-295); Potassium 4.1 mmol/L (3.5-5.1); Sodium 139 mmol/L (136-145); Total Bilirubin 0.2 mg/dL (0.15-1.2); Total Protein 5.7 g/dL (6.6-8.7)
[2024-02-08 06:48] LABS: Creatinine Clr Calc Pharmacy 70.4751
--- NOTE | 2024-02-08 06:53 | ECG_ITS ---
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 Measurements Intervals [place] Rate: 62 P: 36 NE: 168 QRS: 34 QRSD: 100 T: 38 QT: 420 QTc: 430 Interpretive Statements SINUS RHYTHM Compared to ECG 02/07/2024 16:57:43 Atrial fibrillation no longer present Electronically Signed On 02-08-2024 14:10:14 BIOMASS BOILER OPERATOR by Jasmina Raman M.D. [id number]
[2024-02-08 07:03] LABS: Folate Level 3.4 ng/mL (4.8-37.3)
[2024-02-08 07:09] LABS: Digoxin 2.2 ng/mL (0.6-1.2)
[2024-02-08 07:43] LABS: Estmated Average Glucose 140; Hemoglobin A1C 6.5 % (4.0-6.0)
[2024-02-08] MEDS: meropenem 1,000 mg SDV 1000 MG IVP (07:47)
[2024-02-08] MEDS: water for injection-sterile 20 ML 1000 ML (07:48)
--- NOTE | 2024-02-08 09:54 | USCV_ITS ---
Jinny Jackman Age: 73 Gender: F : 1950 Exam Date: 02/08/2024 12:06 Ordering Phys: Jasmina Raman MD ([email or web address]) Technologist: Dereck Olvera Exam Location: [facility] [place] Indication: kirsten BP: 113 / 75 HR: 66 Rhythm: Sinus Technical Quality: Adequate MEASUREMENTS (Male / Female) Normal Values 2D ECHO LV Diastolic Diameter PLAX 5.8 cm 4.2 - 5.9 / 3.9 - 5.3 cm IVS Diastolic Thickness 1.1 cm 0.6 - 1.0 / 0.6 - 0.9 cm IVS Systolic Thickness 1.2 cm LVPW Diastolic Thickness 1.3 cm 0.6 - 1.0 / 0.6 - 0.9 cm LVPW Systolic Thickness 2.2 cm LVOT Diameter 2.0 cm LV Ejection Fraction 2D Teich 78.2 % LV Ejection Fraction MOD 4C 69.8 % LV Ejection Fraction MOD 2C 59.1 % LV Ejection Fraction 2C AL 58.4 % LA Diameter 4.0 cm RA Systolic Volume 4C AL 65.9 ml RA Systolic Volume 4C MOD 66.0 ml Aorta at Sinotubular Diameter 2.9 cm IVC Diameter 2.2 cm M-MODE LA Ao Ratio MM 1.2 AV Cusp Separation MM 2.0 cm DOPPLER AV Peak Velocity 132.0 cm/s LVOT Peak Velocity 100.0 cm/s AV Area Cont Eq vti 3.4 cm squared AV Area Cont Eq pk 2.4 cm squared MV Peak Velocity 359.7 cm/s MV Area PHT 3.2 cm squared Mitral E to A Ratio 1.1 TV Peak Velocity 265.3 cm/s TR Peak Velocity 357.0 cm/s TR Peak Gradient 51.0 mmHg TR Mean Velocity 271.0 cm/s TR Mean Gradient 31.9 mmHg TR Velocity Time Integral 98.6 cm PV Peak Velocity 82.0 cm/s RV Ejection Time 0.3 s FINDINGS Left Ventricle Normal left ventricular size, systolic function and wall thickness, with no regional wall motion abnormalities. Estimated LVEF normal 62%. Right Ventricle Mildly increased right ventricular size. Normal right ventricular systolic function. Right Atrium Normal right atrial size. Left Atrium Mildly increased left atrial size. Mitral Valve Mildly thickened mitral valve. Trace mitral regurgitation. Aortic Valve Thickened aortic valve. No aortic valve stenosis. Trace aortic valve regurgitation. Tricuspid Valve Structurally normal tricuspid valve. Trace tricuspid valve regurgitation. Tricuspid valve gradient could not be assessed accurately, however appears to be normal. Pulmonic Valve Pulmonic valve not well visualized. Trace pulmonary valve regurgitation. Pericardium No pericardial effusion. Aorta Normal size aortic root and proximal ascending aorta. IVC Mildly increased in size (22 mm) with normal respiratory collapse. CONCLUSIONS Normal LV systolic function. Estimated LVEF normal 62%. Mildly dilated left atrium. Mildly increased right ventricle size with normal RVsystolic function. Normal right heart and pulmonary artery systolic pressures. Jasmina Raman MD (Electronically Signed) Final Date: 08 February 2024 12:56 S
[2024-02-08] MEDS: gabapentin 300 mg Capsule PO (10:49)
[2024-02-08] MEDS: folic acid 1 mg Tablet PO (10:49)
[2024-02-08] MEDS: magnesium oxide 400 mg tablet 200 MG PO (10:50)
--- NOTE | 2024-02-08 13:01 | P.PN_ITS ---
Subjective 2 Subjective: Patient is doing well today. Atrial fibrillation rate converted to normal sinus rhythm. Clinically she is asymptomatic. Sitting comfortably on the bed. Vitals are stable. Heart rate 80s sinus rhythm. Blood pressure in the normal range. Systemic review unremarkable. Echo was done earlier today and LVEF is normal. No significant valvular abnormality noted either. Medications: Medication Review Details: Current medication reviewed Vitals/I&O/Wt Last Vital Signs Temp 97.2 F L 02/08/24 04:00 Pulse 65 02/08/24 12:00 Resp 29 H 02/08/24 12:00 BP 125/64 02/08/24 12:00 Pulse Ox 96 02/08/24 12:00 O2 Del Method Nasal Cannula 02/08/24 07:35 O2 Flow Rate 4 02/08/24 07:35 02/07/24 02/08/24 02/08/24 23:59 06:59 14:59 Intake Total 120 / 120 Output Total Balance 120 / 120 Weight last 48 hrs Weight 306 lb 7.08 oz Weight 306 lb 7.08 oz Weight 298 lb Weight 298 lb Physical Exam 2 Narrative: Sitting comfortably in the bed. No respiratory distress. No chest pain. Const: COMMON NORMALS: no acute distress, patient oriented x3, healthy appearing and alert HENMT: OTHER: Normal Eye: OTHER: Normal Resp: OTHER: Good air entry bilaterally on auscultation of chest. No added sounds. Cardio: OTHER: No jugular venous distention. Normal first and second heart sounds. No added sound. GI: OTHER: Abdominal soft nontender. Bowel sounds audible. Extremity: OTHER: Trace lower extremity edema. Neuro: COMMON NORMALS: patient oriented x3 SENSORIUM/ORIENTATION: Yes alert Urinary Catheter Management: Cunningham: Cath Placed During This Visit: yes Reason for Continuing Indwelling Catheter: Acute Urinary Retention or Obstruction Urinary Catheter Date of Insertion: 02/07/24 Urinary Catheter Time of Insertion: 13:51 Data 02/08/24 06:08 02/08/24 06:08 Micro: Microbiology 02/07/24 12:04 Blood Culture - Preliminary Blood NEGATIVE TO DATE 02/07/24 12:02 Blood Culture - Preliminary Blood NEGATIVE TO DATE 02/07/24 12:28 Urine Culture - Preliminary Urine,Clean Catch A&P Assessment and plan (1) Atrial fibrillation with RVR: 73-year-old female patient was admitted yesterday with an atrial fibrillation with rapid ventricular rate. Patient converted to normal sinus rhythm while on the IV amiodarone infusion. Echo showed normal LV function. No significant valvular abnormality noted. Currently no angina or any heart failure symptoms. Plan to discontinue amiodarone and start her on beta-chely, metoprolol 25 mg twice a day. Concerning history of anemia and ongoing hematuria for which she is currently under investigation for possible urinary bladder tumor, it was decided not to start her on any antiplatelets/anticoagulation specially when she is already converted to normal sinus rhythm. Rest of the management of UTI as per medical team. We will follow-up in the clinic in 2 to 3 weeks. Attestations 2 Medical Necessity Statement*: Atrial fibrillation with rapid ventricular rate requiring IV amiodarone Coding Level of Care Code 49155 Diagnoses Atrial fibrillation with RVR I48.91 Time Spent (min) 20
--- NOTE | 2024-02-08 13:18 | P.DS_ITS ---
Discharge Providers Date of Admission: 02/07/24 13:48 Date of Discharge: February 08, 2024 Attending Provider at Admission: Rigoberto Evans MD Attending Provider at Discharge: Rigoberto Evans MD Consults: Cardiology: Dr. Raman Primary Care Provider: Balbir Owens Diagnoses at Discharge Discharge Diagnosis (1) Atrial fibrillation with RVR: Status: Acute Reason for Visit Reason for Visit: chest pain, sob Hospital Course Hospital Course Jinny Jackman is a 73 year old female with past medical history of recurrent UTI, renal cell carcinoma, single kidney, recurrent anemia, past history of cervical cancer, skin cancer, recurrent hematuria with recent diagnosis of bladder cancer for which she is to follow-up with urologist next week for tumor resection patient to the ER today because of chest pain, difficulty in breathing which has been getting worse since yesterday evening. Symptoms are associated with palpitations, mild orthopnea. Patient has had sleep studies in the past which has been tested negative. In the ER she was found to have atrial fibrillation with rapid ventricular response for which she was started on Cardizem drip after Cardizem bolus without any help with her heart rate and drop in blood pressures and she was transitioned over to amiodarone bolus and drip. Patient was admitted to the hospital further evaluation and management of persistent A-fib with RVR with signs of congestive heart failure. She was started on amiodarone drip, given loading digoxin dose and started on metoprolol twice daily. After detailed discussion given her history of hematuria she was started on heparin drip for stroke prevention. Patient did not have any episodes of hematuria during hospitalization. At first because patient was significantly sick she was started on antibiotics with concerns for UTI. Due to concerns for cardiomegaly on chest x-ray for which stat echocardiogram was done which ruled out significant pericardial effusion or tamponade. Patient responded well to the treatment and was back into sinus rhythm since earlier today morning for around 12 hours. Repeat echocardiogram was done which showed a normal EF hence she has been discharged on metoprolol twice daily as per cardiology team. Her A1c was checked and was found to be 6.5 for which she has been started on Farxiga. Given concerns for possibility of paroxysmal A-fib she has been discharged on event monitor. Further discussions about anticoagulations were done and she has been discharged on Eliquis 5 mg twice daily which she can start for the possibility of paroxysmal A-fib after completion of tumor removal procedure with urologist. If she does not have significant events of A-fib on event monitor and anticoagulation will be discontinued. She is to follow-up with her primary care provider within next 1 week and with Shanda Chaves/luna from cardiology within next 4 weeks. She is also being discharged on linezolid twice daily given her history of UTI with Staphylococcus for next 5 days. Physical Exam Narrative: General: No acute distress, AO x3 HEENT: PERRLA, pupils bilaterally equal and reactive Chest: Normal vesicular breath sounds, no added sounds, equal good air entry bilaterally CVS: S1-S2 regular, no murmurs, no tachycardia, no gallops, no rubs Abdomen: Soft, nontender, no organomegaly, bowel sounds present Neuro: No focal deficits, no facial deformity, AO x3, power 5/5 in all limbs Urinary Catheter Management: Cunningham: Cath Placed During This Visit: yes Reason for Continuing Indwelling Catheter: Acute Urinary Retention or Obstruction Urinary Catheter Date of Insertion: 02/07/24 Urinary Catheter Time of Insertion: 13:51 Discharge Data Studies Completed and Pending Completed Studies During Hospitalization Category Date Time Status CT chest wo con [id number] Routine Cat Scan 02/07/24 15:27 Completed XR chest 1V portable [id number] Stat Exams 02/07/24 11:16 Completed CV. echo complete* [id number] Routine Ultrasound 02/08/24 09:54 Completed CV. echo limited [id number] Stat Ultrasound 02/07/24 11:41 Completed Pending at discharge Category Date Time Status Blood Culture Stat Lab 02/07/24 12:04 Results Platelet Count Q2D Lab 02/09/24 04:00 Ordered Platelet Count Q2D Lab 02/11/24 04:00 Ordered Urine Culture Stat Lab 02/07/24 12:28 Results Vitamin B12 Routine Lab 02/07/24 13:28 Received Radiology Impressions Chest X-Ray 02/07/24 11:16 IMPRESSION: Findings suggesting mild CHF Chest CT 02/07/24 15:27 IMPRESSION: CHF with pleural effusions Echocardiogram: CONCLUSIONS Normal LV systolic function. Estimated LVEF normal 62%. Mildly dilated left atrium. Mildly increased right ventricle size with normal RVsystolic function. Normal right heart and pulmonary artery systolic pressures. Jasmina Raman MD (Electronically Signed) Final Date: 08 February 2024 12:56 Laboratory Results WBC 11.00 10^3/uL (3.29-11.43) 02/08/24 06:08 RBC 3.95 10^6/uL (3.85-5.65) 02/08/24 06:08 Hgb 12.30 g/dL (11.27-16.99) 02/08/24 06:08 Hct 38.9 % (36-47) 02/08/24 06:08 MCV 98.5 fl (85-98) H 02/08/24 06:08 MCH 31.1 pg (27-33) 02/08/24 06:08 MCHC 31.6 g/dL (30-55) 02/08/24 06:08 RDW 14.4 % (12.1-15.1) 02/08/24 06:08 Plt Count 205 10^3/cmm (157-399) 02/08/24 06:08 MPV 12.1 fL (7.4-10.4) H 02/08/24 06:08 Neut % (Auto) 75.8 % 02/08/24 06:08 Lymph % (Auto) 12.4 % 02/08/24 06:08 Hand % (Auto) 10.1 % 02/08/24 06:08 Eos % (Auto) 0.7 % 02/08/24 06:08 Baso % (Auto) 0.6 % 02/08/24 06:08 Neut # (Auto) 8.34 10^3/uL (1.8-7.7) H 02/08/24 06:08 Lymph # (Auto) 1.4 10^3/uL (0.8-4.8) 02/08/24 06:08 Hand # (Auto) 1.1 10^3/uL (0.2-0.9) H 02/08/24 06:08 Eos # (Auto) 0.1 10^3/uL (0.0-0.8) 02/08/24 06:08 Baso # (Auto) 0.1 10^3/uL (0.0-0.1) 02/08/24 06:08 Nucleated RBC % (auto) 0 % 02/08/24 06:08 Nucleated RBCs # 0.0 /100WBC 02/08/24 06:08 ESR 18 mm/hr (0-15) H 02/07/24 11:21 APTT 61.2 SECONDS (23.9-36.7) H 02/08/24 06:08 D-Dimer 0.42 ug/mLFEU (0-0.59) 02/07/24 11:21 Sodium 139 mmol/L (136-145) 02/08/24 06:08 Potassium 4.1 mmol/L (3.5-5.1) 02/08/24 06:08 Chloride 106 mmol/L (98-107) 02/08/24 06:08 Carbon Dioxide 22 mmol/L (22-29) 02/08/24 06:08 Anion Gap 15.1 (5-19) 02/08/24 06:08 BUN 16 mg/dL (8-23) 02/08/24 06:08 Creatinine 1.1 mg/dL (0.5-0.9) H 02/08/24 06:08 GFR Calculation Not Reportable 02/08/24 06:08 Glucose 122 mg/dL (65-115) H 02/08/24 06:08 Estimat Average Glucose 140 02/08/24 06:08 Hemoglobin A1c 6.5 % (4.0-6.0) H 02/08/24 06:08 Calculated Osmolality 290 mOsm/kg (285-295) 02/08/24 06:08 Lactic Acid 1.7 mmol/L (0.5-2.2) 02/07/24 13:28 Calcium 8.0 mg/dL (8.5-10.5) L 02/08/24 06:08 Phosphorus 3.0 mg/dL (2.5-4.5) 02/08/24 06:08 Magnesium 1.9 mg/dL (1.7-2.3) 02/08/24 06:08 Iron 35 ug/dL (37-145) L 02/07/24 13:28 TIBC 335 mcg/dl 02/07/24 13:28 % Saturation 10.4 % (20-50) L 02/07/24 13:28 Unsat Iron Binding 300 ug/dL (112-347) 02/07/24 13:28 Total Bilirubin 0.2 mg/dL (0.15-1.2) 02/08/24 06:08 AST 25 U/L (0-32) 02/08/24 06:08 ALT 15 U/L (0-33) 02/08/24 06:08 Alkaline Phosphatase 97 U/L (35-105) 02/08/24 06:08 Troponin T Baseline 51 ng/L (0-10) H 02/07/24 11:21 Troponin T 120 Minute 44.92 ng/L (0-10) H 02/07/24 13:28 Delta Troponin T -6.08 ABS# (0-10) L 02/07/24 13:28 Troponin T Hi Sens 6Hr 48.72 ng/L (0-10) H 02/07/24 17:47 Troponin T Hi Sens 6Hr Delta -2.28 ng/L (0-12) L 02/07/24 17:47 C-Reactive Protein 9.8 mg/L (0.0-4.9) H 02/07/24 11: Total Protein 5.7 g/dL (6.6-8.7) L 02/08/24 06:08 Albumin 3.3 g/dL (3.5-5.2) L 02/08/24 06:08 Globulin 2.4 g/dL (1.3-4.6) 02/08/24 06:08 Triglycerides 78 mg/dL (0-150) 02/08/24 06:08 Cholesterol 106 mg/dL (0-200) 02/08/24 06:08 LDL Cholesterol, Calc 52 mg/dL (50-129) 02/08/24 06:08 HDL Cholesterol 38 mg/dL (60-100) L 02/08/24 06:08 LDL/HDL Ratio 1.37 RATIO (0.00-3.22) 02/08/24 06:08 Cholesterol/HDL Ratio 2.79 mg/dL (0.0-4.40) 02/08/24 06:08 Vitamin B12 Cancelled 02/07/24 13:28 Folate 3.4 ng/mL (4.8-37.3) L 02/08/24 06:08 Procalcitonin 0.10 ng/mL (0-0.5) 02/08/24 06:08 TSH 1.69 uIU/mL (0.27-4.20) 02/07/24 13:28 Urine Color Yellow (Yellow) 02/07/24 12:28 Urine Appearance Clear (CLEAR) 02/07/24 12:28 Urine pH 6.0 (5-7) 02/07/24 12:28 Ur Specific [place] 1.008 (1.005-1.030) 02/07/24 12:28 Urine Protein Trace (Negative) A 02/07/24 12:28 Urine Glucose (UA) Negative (Normal) 02/07/24 12:28 Urine Ketones Negative (Negative) 02/07/24 12:28 Urine Blood 3+ (Negative) A 02/07/24 12:28 Urine Nitrate Negative (Negative) 02/07/24 12: Urine Bilirubin Negative (Negative) 02/07/24 12: Urine Urobilinogen 0.2 mg/dL (Negative) 02/07/24 12:28 Ur Leukocyte Esterase Trace (Negative) A 02/07/24 12:28 Urine RBC 21-50 /hpf (0-2) H 02/07/24 12:28 Urine WBC 11-20 /hpf (0-5) H 02/07/24 12:28 Ur Squamous Epith Cells 0-5 /hpf (0-5) 02/07/24 12:28 Amorphous Sediment Not Reportable 02/07/24 12:28 Urine Bacteria None seen /hpf (NONE) 02/07/24 12:28 Hyaline Casts 0.40 /lpf 02/07/24 12:28 Digoxin 2.2 ng/mL (0.6-1.2) H* 02/08/24 06:08 Vitals Last Vital Signs Temp 97.2 F L 02/08/24 04:00 Pulse 65 02/08/24 12:00 Resp 29 H 02/08/24 12:00 BP 125/64 02/08/24 12:00 Pulse Ox 96 02/08/24 12:00 O2 Del Method Nasal Cannula 02/08/24 07:35 O2 Flow Rate 4 02/08/24 07:35 Discharge Plan Discharge Patient Disposition: Home Condition: Stable Prescriptions: New furosemide 20 mg Tablet 20 mg PO DAILY@0800 Qty: 30 0RF Eliquis 5 mg tablet 5 mg PO BID Qty: 60 0RF metoprolol tartrate 25 mg tablet 25 mg PO BID Qty: 60 0RF linezolid 600 mg Tablet 600 mg PO Q12H Qty: 10 0RF folic acid 1 mg Tablet 1 mg PO BID Qty: 60 0RF dapagliflozin propanediol [Farxiga] 10 mg tablet 10 mg PO DAILY Qty: 30 0RF Continued cholecalciferol (vitamin D3) 25 mcg (1,000 unit) capsule 25 mcg PO DAILY magnesium 250 mg tablet 250 mg PO DAILY multivitamin [Daily Multi-Vitamin] Tablet 1 tab PO DAILY hydroxychloroquine 200 mg tablet 200 mg PO BID Qty: 180 1RF leflunomide 20 mg tablet 20 mg PO DAILY Qty: 30 5RF tramadol 50 mg tablet 50 mg PO BEDTIME PRN (Reason: pain) Qty: 30 1RF gabapentin 100 mg capsule 100 mg PO TID PRN (Reason: joint pain) gabapentin 300 mg capsule 300 mg PO TID Qty: 90 2RF calcium carbonate 500 mg calcium (1,250 mg) Tablet 500 mg PO DAILY Discharge Orders: Discharge Order (Routine); Ordered 02/08/24 Ordered By: Rigoberto Evans Other Ambulatory Orders: MCT/Event Monitor 21 Days (Routine) Timeframe: 1 Week Facility: [facility] - Location: Radiology Ordered By: Rigoberto Evans Referrals: Balbir Owens NP [Primary Care Provider] - Discharge Diet: Cardiac and Diabetic Discharge Activity: Resume usual activity and Increase activity as tolerated Patient Instructions: Opioid Safety Activity Restrictions/Additional Instructions: Metoprolol 25 mg twice daily has been added to your medication list. Please check your blood pressure daily and maintain a blood pressure diary. Goal blood pressures less than 140/90 mmHg. Please follow-up with cardiology office for event monitor. If you have evidence of A-fib you should be on a blood thinner with Eliquis 5 mg twice daily. You can start the medication after removal of bladder mass once you get okay from your outpatient urologist. Farxiga has been also added to your medication list for slightly elevated A1c of 6.5. Discharge Attestations Time Spent in Discharge Care*: greater than 30 min Specific Discharge Activities: educating patient, educating and/or supporting family/caregiver, discussing with pcp/other providers, documenting/other paperwork and evaluating patient/reviewing data Status at Discharge: Cognitive status at discharge: cognitively intact , Behavioral status at discharge: cooperative , Functional status at discharge: uses cane/walker , Overall status at discharge: patient is back to baseline Quality Metrics Clinical Quality Measures [ No reported AMI, CVA or VTE this stay] Coding Level of Care Code 74362 Total time (in minutes) for Discharge: 60 Diagnoses Atrial fibrillation with RVR I48.91
== END 2024-02-08 15:00 | disposition home or self-care (01) | DRG 309 ==
LOC: ER 11:24 → ICU 13:53
PROVIDERS: Admitting Provider Student in an Organized Health Care Education/Training Program; Emergency Provider Family Medicine; PCP Clinical Nurse Specialist Adult Health; Visit Provider Student in an Organized Health Care Education/Training Program
DX: I48.91 Unspecified atrial fibrillation (principal); N17.9 Acute kidney failure, unspecified; N32.9 Bladder disorder, unspecified; D63.1 Anemia in chronic kidney disease; M06.9 Rheumatoid arthritis, unspecified; I50.9 Heart failure, unspecified; N30.90 Cystitis, unspecified without hematuria; Z87.440 Personal history of urinary (tract) infections; Z85.528 Personal history of other malignant neoplasm of kidney; Z85.41 Personal history of malignant neoplasm of cervix uteri; Z85.820 Personal history of malignant melanoma of skin; Z90.5 Acquired absence of kidney; Z90.49 Acquired absence of other specified parts of digestive tract; Z90.710 Acquired absence of both cervix and uterus
CPT/HCPCS: 36415; 51702; 71045; 71250; 80053; 80061; 80162; 81001; 82607; 82746; 83036; 83540; 83550; 83605; 83735; 84100; 84145; 84443; 84484; 85025; 85378; 85651; 85730; 86140; 87040; 87086; 93005; 93306; 93308; 96374; 96376; 99291; 99292; A4222; J0283; J1160; J1644; J1940; J2185; J2270; J2470; J3490; J7040

== ENCOUNTER 2024-03-02 13:30 | Oncology outpatient (recurring) (ONCR) | payer MEDICARE, SELFPAY ==
[2024-02-24 07:58] LABS: Basophils # 0.1 10^3/uL (0.0-0.1); Basophils % 0.8 %; Eosinophils # 0.2 10^3/uL (0.0-0.8); Eosinophils % 1.6 %; Hematocrit 38.5 % (36-47); Lymphocytes # 0.9 10^3/uL (0.8-4.8); Lymphocytes % 8.5 %; Mean Corpuscular HGB Conc 31.4 g/dL (30-55); Mean Corpuscular Hemoglobin 29.9 pg (27-33); Mean Corpuscular Volume 95.1 fl (85-98); Mean Platelet Volume 10.4 fL (7.4-10.4); Monocytes # 1.1 10^3/uL (0.2-0.9); Monocytes % 10.6 %; Neutrophils # 8.22 10^3/uL (1.8-7.7); Neutrophils % 78.1 %; Nucleated Red Blood Cells % 0 %; Platelet Count 247 10^3/cmm (157-399); Red Blood Count 4.05 10^6/uL (3.85-5.65); Red Cell Distribution Width 13.6 % (12.1-15.1); White Blood Count 10.52 10^3/uL (3.29-11.43)
[2024-02-24 08:15] LABS: Alanine Aminotransferase 18 U/L (0-33); Albumin Level 3.3 g/dL (3.5-5.2); Alkaline Phosphatase 175 U/L (35-105); Anion Gap 14.7 (5-19); Aspartate Amino Transferase 22 U/L (0-32); Blood Urea Nitrogen 15 mg/dL (8-23); Calcium 7.6 mg/dL (8.5-10.5); Carbon Dioxide 20 mmol/L (22-29); Chloride 104 mmol/L (98-107); Glucose 115 mg/dL (65-115); Osmolality Calculated 282 mOsm/kg (285-295); Potassium 3.7 mmol/L (3.5-5.1); Sodium 135 mmol/L (136-145); Total Bilirubin 0.5 mg/dL (0.15-1.2); Total Protein 6.3 g/dL (6.6-8.7)
[2024-03-02 13:50] VITALS: BP 122/77; PULSE 73; RESP 16; TEMP 36.2; O2SAT 97
[2024-03-02] MEDS: sodium chloride 0.9% 250 ML 75 ML IV (13:54)
[2024-03-02] MEDS: ferric carboxy (PYXIS) 750 MG in sodium chloride 0.9% (100 ml) 100 ML 345 MG IV (14:05)
[2024-03-02 15:19] VITALS: BP 113/74; PULSE 72; RESP 18; TEMP 35.7; O2SAT 98
== END 2024-03-06 23:59 | disposition home or self-care (01) ==
PROVIDERS: Nurse Practitioner Family; PCP Clinical Nurse Specialist Adult Health; Visit Provider Internal Medicine Hematology & Oncology
DX: Z53.9 Procedure and treatment not carried out, unspecified reason (principal); D50.8 Other iron deficiency anemias; Z79.899 Other long term (current) drug therapy
CPT/HCPCS: 36415; 80053; 85025; 96360; 96365; 99213; J1439; J7050

== ENCOUNTER → 2024-03-17 13:44 | Outpatient (BNVA) | payer MEDICARE, SELFPAY | PROVIDERS: PCP Clinical Nurse Specialist Adult Health; Visit Provider Nurse Practitioner Family | DX: I48.91 Unspecified atrial fibrillation (principal); D50.9 Iron deficiency anemia, unspecified; Z79.01 Long term (current) use of anticoagulants | CPT/HCPCS: 99214 ==

== ENCOUNTER → 2024-03-22 14:33 | Outpatient (BNVA) | payer MEDICARE, SELFPAY | PROVIDERS: PCP Clinical Nurse Specialist Adult Health; Visit Provider Internal Medicine Rheumatology | DX: M06.9 Rheumatoid arthritis, unspecified (principal); Z79.899 Other long term (current) drug therapy; N18.31 Chronic kidney disease, stage 3a; M81.8 Other osteoporosis without current pathological fracture | CPT/HCPCS: 99214 ==

== ENCOUNTER 2024-03-24 14:50 | Outpatient (CLI) | payer MEDICARE, SELFPAY ==
--- NOTE | 2024-03-24 14:54 | XRR_ITS ---
PROCEDURE INFORMATION: Exam: XR Right Ankle Exam date and time: 03/24/2024 3:20 PM Age: 73 years old Clinical indication: Pain; Ankle; Right; Additional info: M25.571 - pain in right ankle and joints of right foot TECHNIQUE: Imaging protocol: Radiologic exam of the right ankle. Views: 3 or more views. COMPARISON: CR XR knee RT 3V* [id number] 03/24/2024 3:20 PM FINDINGS: Bones/joints: Oblique, slightly comminuted, slightly displaced fracture distal right fibula at the ankle. Large right inferior calcaneal spur and moderate right posterior calcaneal enthesophyte. Second smaller more anterior spur from the inferior right calcaneus. Otherwise, unremarkable. Soft tissues: Large amount of diffuse soft tissue swelling. Otherwise, unremarkable soft tissues. Vasculature: Tiny amount of arterial calcification. XR/XR ankle RT min 3V* [id number] IMPRESSION: 1. Large amount of diffuse soft tissue swelling. 2. Oblique, slightly comminuted, slightly displaced fracture distal right fibula at the ankle. 3. Additional details as above.
--- NOTE | 2024-03-24 14:54 | XRR_ITS ---
PROCEDURE INFORMATION: Exam: XR Right Knee Exam date and time: 03/24/2024 3:20 PM Age: 73 years old Clinical indication: Pain; Knee; Right; Additional info: M25.561 - pain in right knee TECHNIQUE: Imaging protocol: Radiologic exam of the right knee. Views: 3 views. COMPARISON: CR XR knee RT 1-2V [id number] 11/08/2020 1:22 PM FINDINGS: Bones/joints: Severe arthritis right patellofemoral articulation. Mild arthritis elsewhere. Otherwise, unremarkable. Soft tissues: Otherwise, unremarkable soft tissues. XR/XR knee RT 3V* [id number] IMPRESSION: No acute findings. Arthritis. Consider MRI if there is continued clinical suspicion of additional right knee pathology.
== END 2024-03-24 14:51 | disposition home or self-care (01) ==
LOC: RAD 14:52
PROVIDERS: PCP Clinical Nurse Specialist Adult Health; Visit Provider Internal Medicine Rheumatology
DX: M17.11 Unilateral primary osteoarthritis, right knee (principal); S82.451A Displaced comminuted fracture of shaft of right fibula, initial encounter for closed fracture; M77.31 Calcaneal spur, right foot; M25.741 Osteophyte, right hand; M06.9 Rheumatoid arthritis, unspecified; X58.XXXA Exposure to other specified factors, initial encounter
CPT/HCPCS: 73562; 73610

== ENCOUNTER → 2024-04-06 09:05 | Outpatient (BNVA) | payer MEDICARE, SELFPAY | PROVIDERS: PCP Clinical Nurse Specialist Adult Health; Visit Provider Podiatrist Foot & Ankle Surgery | DX: M25.571 Pain in right ankle and joints of right foot (principal); S82.401A Unspecified fracture of shaft of right fibula, initial encounter for closed fracture; W06.XXXA Fall from bed, initial encounter | CPT/HCPCS: 73610; 99203 ==

== ENCOUNTER → 2024-04-22 09:03 | Outpatient (BNVA) | payer OTHER, MEDICARE, SELFPAY | PROVIDERS: PCP Clinical Nurse Specialist Adult Health; Visit Provider Podiatrist Foot & Ankle Surgery | DX: S82.401A Unspecified fracture of shaft of right fibula, initial encounter for closed fracture (principal); S82.301A Unspecified fracture of lower end of right tibia, initial encounter for closed fracture; W06.XXXA Fall from bed, initial encounter | CPT/HCPCS: 73590; 73610 ==

== ENCOUNTER 2024-04-22 10:28 | Outpatient (CLI) | payer OTHER, MEDICARE, SELFPAY | END 2024-04-22 10:29 | disposition home or self-care (01) | LOC: SPT 10:28 | PROVIDERS: PCP Clinical Nurse Specialist Adult Health; Visit Provider Podiatrist Foot & Ankle Surgery | DX: Z46.89 Encounter for fitting and adjustment of other specified devices (principal); S82.401D Unspecified fracture of shaft of right fibula, subsequent encounter for closed fracture with routine healing; X58.XXXD Exposure to other specified factors, subsequent encounter | CPT/HCPCS: 97760; L4361 ==

== ENCOUNTER 2024-04-26 07:33 | Oncology outpatient (recurring) (ONCR) | payer OTHER, SELFPAY ==
[2024-04-26 08:07] LABS: Basophils # 0.1 10^3/uL (0.0-0.1); Basophils % 1.8 %; Eosinophils # 0.1 10^3/uL (0.0-0.8); Eosinophils % 2.3 %; Hematocrit 40.9 % (36-47); Lymphocytes # 1.3 10^3/uL (0.8-4.8); Mean Corpuscular HGB Conc 30.6 g/dL (30-55); Mean Corpuscular Hemoglobin 29.6 pg (27-33); Mean Corpuscular Volume 96.9 fl (85-98); Mean Platelet Volume 10.8 fL (7.4-10.4); Monocytes # 0.4 10^3/uL (0.2-0.9); Monocytes % 9.9 %; Neutrophils # 2.47 10^3/uL (1.8-7.7); Neutrophils % 56.8 %; Nucleated Red Blood Cells % 0 %; Platelet Count 215 10^3/cmm (157-399); Red Blood Count 4.22 10^6/uL (3.85-5.65); Red Cell Distribution Width 16.6 % (12.1-15.1); White Blood Count 4.35 10^3/uL (3.29-11.43)
[2024-04-26 08:29] LABS: Alanine Aminotransferase 13 U/L (0-33); Albumin Level 3.5 g/dL (3.5-5.2); Alkaline Phosphatase 156 U/L (35-105); Anion Gap 12.7 (5-19); Aspartate Amino Transferase 20 U/L (0-32); Blood Urea Nitrogen 15 mg/dL (8-23); Calcium 9.2 mg/dL (8.5-10.5); Carbon Dioxide 26 mmol/L (22-29); Chloride 107 mmol/L (98-107); Creatinine Clr Calc Pharmacy 81.3943; Ferritin 204 ng/mL (15-150); Globulin 2.6 g/dL (1.3-4.6); Glucose 98 mg/dL (65-115); Iron 62 ug/dL (37-145); Osmolality Calculated 295 mOsm/kg (285-295); Potassium 3.7 mmol/L (3.5-5.1); Sodium 142 mmol/L (136-145); Total Bilirubin 0.3 mg/dL (0.15-1.2); Total Iron Binding Capacity 238 mcg/dl; Total Protein 6.1 g/dL (6.6-8.7); Unsaturated Iron Binding 176 ug/dL (112-347)
== END 2024-05-07 23:59 | disposition home or self-care (01) ==
PROVIDERS: Nurse Practitioner Family; PCP Clinical Nurse Specialist Adult Health; Visit Provider Internal Medicine Medical Oncology
DX: D50.8 Other iron deficiency anemias (principal)
CPT/HCPCS: 36415; 80053; 82728; 83540; 83550; 85025

== ENCOUNTER → 2024-05-06 09:42 | Outpatient (BNVA) | payer OTHER, SELFPAY | PROVIDERS: PCP Clinical Nurse Specialist Adult Health; Visit Provider Podiatrist Foot & Ankle Surgery | DX: S82.401A Unspecified fracture of shaft of right fibula, initial encounter for closed fracture (principal); S82.301A Unspecified fracture of lower end of right tibia, initial encounter for closed fracture; X58.XXXA Exposure to other specified factors, initial encounter | CPT/HCPCS: 73610 ==

== ENCOUNTER → 2024-05-10 15:11 | Outpatient (BNVA) | payer OTHER, SELFPAY | PROVIDERS: PCP Clinical Nurse Specialist Adult Health; Visit Provider Clinical Nurse Specialist Adult Health | DX: E11.8 Type 2 diabetes mellitus with unspecified complications (principal) | CPT/HCPCS: 83036 ==

== ENCOUNTER → 2024-05-27 09:50 | Outpatient (BNVA) | payer OTHER, SELFPAY | PROVIDERS: PCP Clinical Nurse Specialist Adult Health; Visit Provider Podiatrist Foot & Ankle Surgery | DX: S82.401A Unspecified fracture of shaft of right fibula, initial encounter for closed fracture (principal); S82.301A Unspecified fracture of lower end of right tibia, initial encounter for closed fracture; X58.XXXA Exposure to other specified factors, initial encounter | CPT/HCPCS: 73610 ==

== ENCOUNTER → 2024-06-10 10:03 | Outpatient (BNVA) | payer OTHER, SELFPAY | PROVIDERS: PCP Clinical Nurse Specialist Adult Health; Visit Provider Podiatrist Foot & Ankle Surgery | DX: S82.309D Unspecified fracture of lower end of unspecified tibia, subsequent encounter for closed fracture with routine healing (principal); S82.401D Unspecified fracture of shaft of right fibula, subsequent encounter for closed fracture with routine healing; X58.XXXD Exposure to other specified factors, subsequent encounter | CPT/HCPCS: 73610 ==

== ENCOUNTER → 2024-06-22 15:17 | Outpatient (BNVA) | payer MEDICARE, SELFPAY | PROVIDERS: PCP Clinical Nurse Specialist Adult Health; Visit Provider Internal Medicine Cardiovascular Disease | DX: I48.91 Unspecified atrial fibrillation (principal); I50.30 Unspecified diastolic (congestive) heart failure; I51.7 Cardiomegaly; I47.20 Ventricular tachycardia, unspecified; Z85.51 Personal history of malignant neoplasm of bladder | CPT/HCPCS: 99214 ==

== ENCOUNTER 2024-06-28 07:39 | Oncology outpatient (recurring) (ONCR) | payer MEDICARE, SELFPAY ==
[2024-06-28 08:08] LABS: Basophils # 0.1 10^3/uL (0.0-0.1); Basophils % 1.7 %; Eosinophils # 0.3 10^3/uL (0.0-0.8); Eosinophils % 4.5 %; Lymphocytes # 1.7 10^3/uL (0.8-4.8); Lymphocytes % 28.9 %; Mean Corpuscular HGB Conc 31.5 g/dL (30-55); Mean Corpuscular Hemoglobin 30.1 pg (27-33); Mean Corpuscular Volume 95.4 fl (85-98); Mean Platelet Volume 12.1 fL (7.4-10.4); Monocytes # 0.6 10^3/uL (0.2-0.9); Monocytes % 10.6 %; Neutrophils # 3.26 10^3/uL (1.8-7.7); Nucleated Red Blood Cells % 0 %; Platelet Count 204 10^3/cmm (157-399); Red Blood Count 4.09 10^6/uL (3.85-5.65); Red Cell Distribution Width 14.3 % (12.1-15.1); White Blood Count 6.03 10^3/uL (3.29-11.43)
[2024-06-28 08:29] LABS: Alanine Aminotransferase 11 U/L (0-33); Albumin Level 3.7 g/dL (3.5-5.2); Alkaline Phosphatase 127 U/L (35-105); Anion Gap 14.1 (5-19); Aspartate Amino Transferase 17 U/L (0-32); Blood Urea Nitrogen 14 mg/dL (8-23); Calcium 8.8 mg/dL (8.5-10.5); Carbon Dioxide 23 mmol/L (22-29); Chloride 110 mmol/L (98-107); Ferritin 40 ng/mL (15-150); Globulin 2.3 g/dL (1.3-4.6); Glucose 103 mg/dL (65-115); Iron 48 ug/dL (37-145); Osmolality Calculated 297 mOsm/kg (285-295); Percent Saturation 14.9 % (20-50); Potassium 4.1 mmol/L (3.5-5.1); Sodium 143 mmol/L (136-145); Total Bilirubin 0.2 mg/dL (0.15-1.2); Total Iron Binding Capacity 321 mcg/dl; Unsaturated Iron Binding 273 ug/dL (112-347)
[2024-06-28 08:43] LABS: Vitamin B12 1042 pg/mL (232-1245)
[2024-06-28 09:21] LABS: Folate Level > 20.0 ng/mL (4.8-37.3)
== END 2024-07-05 23:59 | disposition home or self-care (01) ==
PROVIDERS: PCP Clinical Nurse Specialist Adult Health; Visit Provider Internal Medicine Medical Oncology
DX: C64.1 Malignant neoplasm of right kidney, except renal pelvis (principal); D50.8 Other iron deficiency anemias; Z90.5 Acquired absence of kidney; Z79.899 Other long term (current) drug therapy
CPT/HCPCS: 36415; 80053; 82607; 82728; 82746; 83540; 83550; 85025; 99214

== ENCOUNTER → 2024-07-01 11:19 | Outpatient (BNVA) | payer MEDICARE, SELFPAY | PROVIDERS: PCP Clinical Nurse Specialist Adult Health; Visit Provider Podiatrist Foot & Ankle Surgery | DX: S82.401A Unspecified fracture of shaft of right fibula, initial encounter for closed fracture (principal); S82.301A Unspecified fracture of lower end of right tibia, initial encounter for closed fracture; X58.XXXA Exposure to other specified factors, initial encounter | CPT/HCPCS: 99213 ==

== ENCOUNTER 2024-07-05 07:21 | Outpatient (CLI) | payer MEDICARE, SELFPAY ==
--- NOTE | 2024-07-05 | ECG_ITS ---
[facility] 2024[facility]05 Pat Name: Jinny Jackman Department: Room: Gender: Female Talent Specialist: : 1950 Requested By: Zoya Zurita Order Number: [id number] Reading MD: ZOYA ZURITA Interpretive Statements Lung unchanged pre/post procedure; Intraprocedure shortess of breath; Symptoms resoled by discharge NOTE: Please note that this is the electrocardiogram portion of the Lexiscan/Sestamibi stress test. The perfusion scan will be documented separately. DATA: Baseline heart rate was 63 beats per minute. Baseline blood pressure was 125/92 millimeters of mercury. Target heart rate was 149. Maximum heart rate achieved was 78. which was 52 % of the predicted target heart rate. Maximum blood pressure was 125/92 millimeters of mercury. The reason for ending the test was completion of the protocol. The patient did not experience any symptoms. ELECTROCARDIOGRAM: BASELINE: Sinus rhythm. Normal axis. Otherwise, lateral leads ST-T changes which are nonspecific noted. No arrhythmia noted. EXERCISE: After Lexiscan injection, no ST-T changes suggestive of ischemic noted. No arrhythmia noted. CONCLUSION: Please note due to baseline abnormality of the EKG specificity and sensitivity of the EKG portion of LexiScan MIBI stress test will be low 1. EKG not suggestive of ischemia 2. Lexiscan injection unremarkable. 3. Perfusion scan will be documented separately. Electronically Signed On 07-19-2024 20:35:48 CDT by ZOYA ZURITA [email or web address]
[2024-07-05 08:44] VITALS: BMI 38.4
--- NOTE | 2024-07-05 08:44 | NMCV_ITS ---
NM donnie perf SPECT r/s* [id number] Jinny Jackman Age: 73 Gender: F : 1950 Exam Date: 07/05/2024 08:44 Ordering Phys: Zoya Zurita MD ([email or web address]) Technologist: MC Flores Exam Location: [facility] Indications: cp STRESS TEST [facility] IMAGE PROTOCOL Rest/Stress 1 Lexiscan Day Radiopharmaceutical Dose (mCi) Administration Site Administered by Rest: Tc-99m 10.5 IV Sola Argueta CONTACT FINGER ASSEMBLER Sestamibi Stress:Tc-99m 32.4 IV Sola Argueta, CONTACT FINGER ASSEMBLER Sestamibi Rest: 05-Jul-2024 60 Discovery 630 Stress: 05-Jul-2024 30 Discovery 630 0.4mg Lexiscan. Supine position only as patient was unable to lay prone. SPECT RESULTS Technical Quality: Good Raw Data Analysis: Normal Image Corrections: No attenuation or motion correction applied Summed Stress Score: 11 Summed Rest Score: 9 Summed Difference Score: 3 PERFUSION FINDINGS There is a large area of fixed perfusion defect seen in inferolateral wall. 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 There is a large sized partially reversible perfusion defect seen in inferior wall. This is consistent with large area of prior infarct with small to medium sized area of nathan-infarct ischemia in RCA territory. FUNCTIONAL RESULTS (calculated via Gated SPECT) Stress Image LV EF (%): 69 Stress EDV (mL):112 TID: 1 Stress ESV (mL):35 FUNCTIONAL FINDINGS: There is normal left ventricular systolic function. IMPRESSIONS 1. 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 Large sized area of prior infarct with small to medium sized area nathan- infarct ischemia in RCA territory. 3. LV systolic function is normal. Tito Woodruff MD (Electronically Signed) Final Date: 08 July 2024 18:05 S
[2024-07-05] MEDS: regadenoson 0.4 Mg/5 ml Syringe IVP (09:19)
[2024-07-05 09:35] VITALS: BP 123/70; PULSE 72
== END 2024-07-05 07:22 | disposition home or self-care (01) ==
PROVIDERS: PCP Clinical Nurse Specialist Adult Health; Visit Provider Internal Medicine Cardiovascular Disease
DX: R07.9 Chest pain, unspecified (principal); R93.1 Abnormal findings on diagnostic imaging of heart and coronary circulation
CPT/HCPCS: 36415; 78452; 93017; 96374; A9500; J2785

== ENCOUNTER → 2024-07-12 14:03 | Outpatient (BNVA) | payer MEDICARE, SELFPAY | PROVIDERS: PCP Clinical Nurse Specialist Adult Health; Visit Provider Internal Medicine Rheumatology | DX: M06.9 Rheumatoid arthritis, unspecified (principal); N18.31 Chronic kidney disease, stage 3a; M81.0 Age-related osteoporosis without current pathological fracture; Z79.899 Other long term (current) drug therapy | CPT/HCPCS: 99214 ==

== ENCOUNTER → 2024-07-27 15:19 | Outpatient (BNVA) | payer MEDICARE, SELFPAY | PROVIDERS: PCP Clinical Nurse Specialist Adult Health; Visit Provider Internal Medicine Cardiovascular Disease | DX: I48.91 Unspecified atrial fibrillation (principal); I47.20 Ventricular tachycardia, unspecified; I25.10 Atherosclerotic heart disease of native coronary artery without angina pectoris; I25.2 Old myocardial infarction; R94.39 Abnormal result of other cardiovascular function study | CPT/HCPCS: 99204 ==

== ENCOUNTER 2024-07-30 09:23 | Oncology outpatient (recurring) (ONCR) | payer MEDICARE, SELFPAY ==
[2024-07-30] MEDS: sodium chloride 0.9% 250 ML 75 ML IV (10:00)
[2024-07-30] MEDS: iron sucrose 300 MG in sodium chloride 0.9% (100 ml) 100 ML 200 MG IV (10:06)
== END 2024-08-04 23:59 | disposition home or self-care (01) ==
LOC: ONCMED 09:23
PROVIDERS: PCP Clinical Nurse Specialist Adult Health; Visit Provider Internal Medicine Medical Oncology
DX: D50.8 Other iron deficiency anemias (principal); Z79.899 Other long term (current) drug therapy
CPT/HCPCS: 96365; J1756; J7050; J9999

== ENCOUNTER 2024-08-10 12:59 | Outpatient (CLI) | payer MEDICARE, SELFPAY ==
--- NOTE | 2024-08-10 13:00 | XR_ITS ---
WS: [id number] DEXA (DUAL ENERGY X-RAY ABSORPTIOMETRY) Bone mineral density was performed using a [employer] machine. HISTORY: M81.0 - Age-related osteoporosis without current patholog... COMPARISON: None available. Lumbar spine BMD (L1-L4): 0.938 g/cm2 T score: -2.0 Z score: -1.5 Total hip BMD: Left: 0.740 g/cm2. T score: -2.1 Z score: -1.4 Right: 0.706 g/cm2. T score: -2.4 Z score: -1.7 10 year probability of a major osteoporotic fracture is 23.3%. XR/XR DEXA axial skeleton* 57404 IMPRESSION: OSTEOPENIA based upon the WHO classification for females.
== END 2024-08-10 13:00 | disposition home or self-care (01) ==
PROVIDERS: PCP Clinical Nurse Specialist Adult Health; Visit Provider Internal Medicine Rheumatology
DX: M81.0 Age-related osteoporosis without current pathological fracture (principal); Z79.899 Other long term (current) drug therapy; M85.80 Other specified disorders of bone density and structure, unspecified site
CPT/HCPCS: 77080

== ENCOUNTER 2024-08-26 06:07 | Outpatient (CLI) | payer MEDICARE, SELFPAY ==
[2024-08-26] VITALS (45 sets, daily range): BP systolic 104–151; BP diastolic 62–85; PULSE 68–83; RESP 5–25; TEMP 36.5; O2SAT 91–96; BMI 37.8
--- NOTE | 2024-08-26 06:00 | XACV_ITS ---
Exam Room: 2 Ht: 178 cm Wt: 120 kg BSA: 2.48 m2 Gender: Female : 1950 Any Known Allergies: Penicillins Exam Priority: Routine Procedure(s): Procedure Description: Diagnostic procedure Procedure Description: Left Heart Catheterization Procedure Description: Left ventriculography Procedure Description: Coronary Angiography Yudith FIELDS; Diagnostic Cath Status: Elective PCI Indication: Other Recommendations * Continue medical management, extracardiac cardiac cause for chest pain may need to be Xarelto. Diagnostic RX Recommendation: medical therapy and/or counseling Ventriculography Ejection Fraction: 60.0 % Pressures Phase:Rest AO : 120 / 62 ( 83 ) @ 8:22:00 AM 122 / 62 ( 89 ) @ 8:38:00 AM 123 / 62 ( 89 ) @ 8:38:00 AM LV : 124 / 1 / 21 @ 8:37:00 AM 123 / 4 / 23 @ 8:38:00 AM 123 / 3 / 23 @ 8:38:00 AM Valves Phase:DefaultPhase AV : 0.0 @ 7:42:12 AM AV Mean Gradient: 0.0 @ 7:42:12 AM Clinical Evaluation EBL: 5mL-10mL Procedural Details Procedure Consent Obtained. Admit Source: Out Patient. Pre-Procedure Time Out. Identified patient by full name and date of as verbalized by the patient/guarantor. Does the consent match the physician's order: Yes. Accurate & Complete Informed Consent: Yes. Inpatient/Outpatient History & Physical on Chart: Yes. If H&P is completed, is and addenduem needed: No; If yes, is the addendum complete: N/A. Visualize and Verify Site with Patient/Guarantor: N/A. Relevant Radiology Images available: No. The risks, benefits, and alternatives of sedation and/or procedure were discussed by physician. The patient agrees to continue. 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 Chest Pain Symptom Assessment: Typical Angina Symptoms. Correct patient, site and procedure confirmed by cath team. Current diagnosis: Chest Pain, Vtach, Abnormal stress test. PERRLA. Strong, equal hand manager medical bilaterally. Lungs clear x 5 lobes. IV Site on Arrival: 20 gauge in the left anticubital. IV Fluids: 0.9% NaCl at KVO. 0 mL infused prior to candlemaking laborer. Pre Procedural Pulses: bilateral radial was 3+. Pre Procedural Pulses: bilateral dorsalis pedis was 3+. Pre Procedural Pulses: bilateral posterior tibial was 1+. Oxygen started at 2liters/min via nasal canula. right radial was prepped with chloroprep then draped in the usual sterile fashion. right groin was prepped with chloroprep then draped in the usual sterile fashion. Physician notified. Baseline sample Acquired. HR: 75 BPM. Physician arrived. Physician scrubbed in. Immediate Pre-Procedure Time Out. Correct Patient: Yes; Correct Procedure: Yes; Correct Site: Yes; Correct Patient Position: Yes; Correct Supplies: Yes; Dried Flammable Prep: Yes; Blood Products Available: Yes;. Procedure started. Lidocaine 1% infiltrated to the right radial. Arterial access obtained. A 5 [place]ay[place] islander TIG catheter in over wire. Multiple views taken of right coronary artery. Catheter removed over the exchange wire. A 5 [place]ay[place] islander Pawan catheter in over wire. Catheter removed over the exchange wire. A 5 [place]ay[place] islander JL4 catheter in over wire. Multiple views taken of left coronary artery. Catheter removed over the exchange wire. A 5 cay[place] islander Angled Pig catheter in over wire. EDP Sample taken: LV 124/1,21; HR: 75 BPM; SpO2: 97%. LV gram performed in KRUEGER @ 10 mL/second for a total of 30 mL. EDP Sample taken: LV 123/4,23; HR: 72 BPM; SpO2: 99%. Pullback taken: LV 123/3,23; AO 122/62(89); Mean: 0mmHg, Peak to Peak: 0mmHg, SEP: 7sec/min; HR: 73 BPM; SpO2: 99%. Catheter removed over the exchange wire. A TR Band was successful obtaining hemostatsis at the Right Radial artery insertion site. Physician scrubbed out. Post Procedure: Pulses reassessed and unchanged. PERRLA. Strong, equal hand manager medical bilaterally. No VTE prophylaxis required. Medication's Wasted: Lidocaine 1% = 18 mL. Medication's Wasted: Nitro = 49.8 mg. Medication's Wasted: Heparin = 1000 unit. Medication's Wasted: Other = Fentanyl 50mcg. Total IV fluids: 30 mL. Post-op diagnosis: Normal Coronaries. Complications: None. Estimated blood loss: 5mL-10mL. Responsiveness - Normal response to verbal stimuli; alert and oriented, PERRLA. Airway - Unaffected, no intervention required; spontaneous ventilation. Circulation: W/N/L, pulses unchanged. Nausea/Vomiting: No. Procedure completed. Patient transferred by stretcher to CPRU. Vital chart was stopped. Access Site Site: Right Radial artery Sheath Size: 6 Fr Hemostasis Method: TR Band Hemostasis Success: Successful Procedure Medications Start: 7:15 AM Stop: 7:15 AM Medication: Versed Amount: 1 mg Route: I.V. Start: 7:15 AM Stop: 7:15 AM Medication: Fentanyl Amount: 25 mcg Route: I.V. Start: 7:18 AM Stop: 7:18 AM Medication: Versed Amount: 1 mg Route: I.V. Start: 7:19 AM Stop: 7:19 AM Medication: Nitrogylcerin Amount: 200 mcg Route: I.A. Start: 7:23 AM Stop: 7:23 AM Medication: Fentanyl Amount: 25 mcg Route: I.V. Start: 7:26 AM Stop: 7:26 AM Medication: Heparin Amount: 5000 units Route: I.V. I, the attending physician, have reviewed and verified all procedure medications. Yes, all medications given per verbal order History/Risk Factors Hypertension: No Dyslipidemia: No Peripheral Arterial Disease (PAD): No Myocardial Infarction ([place]): Yes Obesity: Yes Renal Disease: No Tobacco Use: Never Prior Interventions PCI: No CABG: No Valve Surgery: No Report Signatures Finalized by Zoya Zurita MD on 09/12/2024 09:43 PM
[2024-08-26] MEDS: diphenhydrAMINE 50 mg Capsule PO (06:41)
[2024-08-26] MEDS: aspirin 325 mg Tablet PO (06:41)
--- NOTE | 2024-08-26 07:11 | W.PM.OPSFHP ---
Same Day Surgery H&P Indication for Procedure/HPI DATE OF PROCEDURE: August 26, 2024 CHIEF COMPLAINT/INDICATIONFOR SURGICAL PROCEDURE: Ventricle arrhythmia Chest pain Abnormal stress test PREOP DIAGNOSIS: Ventricular tachycardia, chest pain, abnormal stress PLANNED PROCEDURE: Left heart catheterization Operation Date: 08/26/24 07:00 Proposed Procedures p Cardiac Catheterization - [facility] w/wo LV & Coros(Left) - Zoya Zurita MD 73-year-old female past medical history significant for history of bladder cancer hypertension hyperlipidemia for worsening of chest pain shortness of breath and episodes of short runs of ventricular tachycardia with ventricular ectopy underwent stress test which turns out to be abnormal. Patient continues to have off-and-on chest pressure now becoming more consistent it is the reason she has been brought in today for left heart cath and PCI if indicated. Medications/Allergies* Home Medications ?Medication ?Instructions ?Recorded ?Confirmed ?Type cholecalciferol (vitamin D3) 25 25 mcg PO DAILY 12/29/19 08/26/24 History mcg (1,000 unit) capsule magnesium 250 mg tablet 250 mg PO DAILY 12/29/19 08/26/24 History multivitamin (Daily Multi-Vitamin 1 tab PO DAILY 11/07/20 08/26/24 History tablet) calcium carbonate 500 mg PO DAILY 02/07/24 08/26/24 History gabapentin 100 mg capsule 100 mg PO TID joint pain 03/17/24 08/26/24 History gabapentin 300 mg capsule 300 mg PO TID PRN Pain 03/17/24 08/25/24 History Allergies/Adverse Reactions Allergy/AdvReac Type Severity Reaction Status Date / Time erythromycin base Allergy Unknown Verified 08/17/24 12:26 Current Medications: Generic Name Dose Route Start Last Admin Trade Name Freq PRN Reason Stop Dose Admin Sodium Chloride 1,000 mls @ 50 mls/hr 08/26/24 06:00 08/26/24 06:14 Sodium Chloride 0.9% IV 08/27/24 01:59 Not Given .Q20H ONE Pertinent History/Comorbid Conditions* Medical History (Updated 08/08/24 @ 18:02 by Zoya Zurita MD) CAD (coronary artery disease) Ventricular tachycardia Single kidney Dysuria Renal cell carcinoma of right kidney Herpes labialis Elevated fasting glucose Chronic anemia unitizer/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 therapy Rash CKD (chronic kidney disease) Hx of melanoma of skin Rheumatoid arthritis Surgical History (Updated 02/09/24 @ 00:00 by MAYURI Hood) History of nephrectomy History of right nephrectomy History of appendectomy S/P cholecystectomy History of hysterectomy for cancer S/P gastroplasty Status post surgical removal of malignant neoplasm of skin Family History (Updated 12/29/19 @ 14:29 by Marce Adler LPN) Cancer Mother Social History Smoking and tobacco/nicotine status: never used tobacco/nicotine Alcohol intake: never Substance/Drug Use: never Adopted: No Caregiver/support person: Yes Lives independently: No Household members: family Housing: House Marital status: / Number of children: 3 service: No Current occupational status: retired Pets and animals: No Do you think of yourself as: Straight/Heterosexual Current gender identity: Female Pertinent Exam Findings alert, oriented x 3, clear to auscultation bilaterally, regular rate & rhythm, operative site marked and procedure specific exam findings Conscious Sedation Assessment PATIENT ASSESSED PRIOR TO SEDATION, WITH NO CHANGE NOTED: Yes AIRWAY EVAL/ANESTHESIA PLAN: ASA II, Risks, benefits & alternatives of sedation and/or procedure discussed and Patient agrees to continue as planned ADDITIONAL INFORMATION: All risk-benefit and alternative for the procedure has been explained in detail. Patient understand risk for stroke major bleed which is 2% patients in 5 to 6% risk minor bleeding bruising infection pseudoaneurysm hematoma patient referred to vascular surgery for patient understand 5% risk of contrast nephropathy. Patient fully understood and would like to proceed with it. Recommendations Other Coding Level of Care Code Acute Code for Chg Fwd
== END 2024-08-26 13:41 | disposition home or self-care (01) ==
PROVIDERS: PCP Clinical Nurse Specialist Adult Health; Visit Provider Internal Medicine Cardiovascular Disease
DX: R07.9 Chest pain, unspecified (principal); R94.39 Abnormal result of other cardiovascular function study; R00.0 Tachycardia, unspecified; Z85.51 Personal history of malignant neoplasm of bladder; E78.5 Hyperlipidemia, unspecified; I12.9 Hypertensive chronic kidney disease with stage 1 through stage 4 chronic kidney disease, or unspecified chronic kidney disease; N18.9 Chronic kidney disease, unspecified; I25.10 Atherosclerotic heart disease of native coronary artery without angina pectoris; I25.2 Old myocardial infarction; E66.9 Obesity, unspecified; Z68.37 Body mass index [BMI] 37.0-37.9, adult
CPT/HCPCS: 36415; 93458; 96374; 99152; C1769; C1887; C1894; J1644; J2250; J3010; J3490; J7030; J9999; Q0163; Q9967

== ENCOUNTER 2024-08-31 15:00 | Oncology outpatient (recurring) (ONCR) | payer MEDICARE, SELFPAY ==
[2024-08-17 08:09] LABS: Basophils # 0.1 10^3/uL (0.0-0.1); Basophils % 1.5 %; Eosinophils # 0.3 10^3/uL (0.0-0.8); Hematocrit 36.6 % (36-47); Lymphocytes # 1.8 10^3/uL (0.8-4.8); Lymphocytes % 29.2 %; Mean Corpuscular HGB Conc 30.6 g/dL (30-55); Mean Corpuscular Hemoglobin 29.8 pg (27-33); Mean Corpuscular Volume 97.3 fl (85-98); Mean Platelet Volume 11.2 fL (7.4-10.4); Monocytes # 0.6 10^3/uL (0.2-0.9); Monocytes % 10.3 %; Neutrophils # 3.24 10^3/uL (1.8-7.7); Neutrophils % 53.8 %; Nucleated Red Blood Cells % 0 %; Platelet Count 233 10^3/cmm (157-399); Red Blood Count 3.76 10^6/uL (3.85-5.65); Red Cell Distribution Width 14.3 % (12.1-15.1); White Blood Count 6.02 10^3/uL (3.29-11.43)
[2024-08-17 08:27] LABS: Alanine Aminotransferase 9 U/L (0-33); Albumin Level 3.6 g/dL (3.5-5.2); Alkaline Phosphatase 131 U/L (35-105); Aspartate Amino Transferase 18 U/L (0-32); C Reactive Protein 3.6 mg/L (0.0-4.9); Globulin 2.4 g/dL (1.3-4.6); Total Bilirubin 0.2 mg/dL (0.15-1.2)
[2024-08-17 08:36] LABS: Erythrocyte Sedimentation Rate 13 mm/hr (0-15)
[2024-08-17 09:12] LABS: Blood Urea Nitrogen 15 mg/dL (8-23); Carbon Dioxide 22 mmol/L (22-29); Chloride 109 mmol/L (98-107); Glucose 105 mg/dL (65-115); Potassium 4.2 mmol/L (3.5-5.1); Sodium 143 mmol/L (136-145)
[2024-08-24] MEDS: iron sucrose 300 MG in sodium chloride 0.9% (100 ml) 100 ML 200 MG IV (16:28)
[2024-08-24 17:03] VITALS: BP 124/78; PULSE 78; RESP 17; TEMP 36.4; O2SAT 98
[2024-08-31] MEDS: iron sucrose 300 MG in sodium chloride 0.9% (100 ml) 100 ML 230 MG IV (15:54)
== END 2024-09-04 23:59 | disposition home or self-care (01) ==
PROVIDERS: Internal Medicine Rheumatology; PCP Clinical Nurse Specialist Adult Health; Visit Provider Internal Medicine
DX: Z53.9 Procedure and treatment not carried out, unspecified reason; E61.1 Iron deficiency; Z79.899 Other long term (current) drug therapy
CPT/HCPCS: 36415; 80076; 82374; 82435; 82565; 82947; 84132; 84295; 84520; 85025; 85651; 86140; 96365; 99213; J1756

== ENCOUNTER 2024-09-14 15:00 | Oncology outpatient (recurring) (ONCR) | payer MEDICARE, SELFPAY ==
[2024-09-07] MEDS: iron sucrose 300 MG in sodium chloride 0.9% (100 ml) 100 ML 220 MG IV (15:20)
[2024-09-07 16:23] VITALS: BP 148/84; PULSE 88; RESP 18; O2SAT 96
[2024-09-14] MEDS: iron sucrose 300 MG in sodium chloride 0.9% (100 ml) 100 ML 200 MG IV (15:26)
== END 2024-10-04 23:59 | disposition home or self-care (01) ==
PROVIDERS: PCP Clinical Nurse Specialist Adult Health; Visit Provider Internal Medicine
DX: Z53.9 Procedure and treatment not carried out, unspecified reason; D50.8 Other iron deficiency anemias; Z79.899 Other long term (current) drug therapy
CPT/HCPCS: 96365; J1756

== ENCOUNTER 2024-10-07 14:39 | Outpatient (CLI) | payer MEDICARE, SELFPAY ==
[2024-10-07 16:06] LABS: Estmated Average Glucose 114; Hemoglobin A1C 5.6 % (4.0-6.0)
[2024-10-07 16:33] LABS: Cholesterol 121 mg/dL (0-200); HDL Cholesterol 36 mg/dL (60-100); Triglycerides 187 mg/dL (0-150); VLDL Cholestrol Calculation 37 mg/dL (0-30)
== END 2024-10-07 14:40 | disposition home or self-care (01) ==
PROVIDERS: PCP Clinical Nurse Specialist Adult Health; Visit Provider Clinical Nurse Specialist Adult Health
DX: R73.01 Impaired fasting glucose (principal); E66.01 Morbid (severe) obesity due to excess calories
CPT/HCPCS: 36415; 80061; 83036

== ENCOUNTER 2024-10-19 12:59 | Oncology outpatient (recurring) (ONCR) | payer MEDICARE, SELFPAY ==
[2024-10-19 13:22] LABS: Hematocrit 41.4 % (36-47); Hemoglobin 13.10 g/dL (11.27-16.99); Mean Corpuscular HGB Conc 31.6 g/dL (30-55); Mean Corpuscular Hemoglobin 28.9 pg (27-33); Mean Corpuscular Volume 91.2 fl (85-98); Nucleated Red Blood Cells % 0 %; Platelet Count 220 10^3/cmm (157-399); Red Blood Count 4.54 10^6/uL (3.85-5.65); White Blood Count 6.50 10^3/uL (3.29-11.43)
[2024-10-19 13:44] LABS: Alanine Aminotransferase 10 U/L (0-33); Albumin Level 3.9 g/dL (3.5-5.2); Alkaline Phosphatase 107 U/L (35-105); Anion Gap 18.2 (5-19); Aspartate Amino Transferase 18 U/L (0-32); Blood Urea Nitrogen 14 mg/dL (8-23); Calcium 9.2 mg/dL (8.5-10.5); Carbon Dioxide 20 mmol/L (22-29); Chloride 105 mmol/L (98-107); Creatinine Clr Calc Pharmacy 70.1358; Ferritin 110 ng/mL (15-150); Globulin 2.9 g/dL (1.3-4.6); Glucose 136 mg/dL (65-115); Iron 70 ug/dL (37-145); Osmolality Calculated 291 mOsm/kg (285-295); Potassium 4.2 mmol/L (3.5-5.1); Sodium 139 mmol/L (136-145); Total Iron Binding Capacity 283 mcg/dl; Total Protein 6.8 g/dL (6.6-8.7); Unsaturated Iron Binding 213 ug/dL (112-347)
[2024-10-19 14:00] LABS: Vitamin B12 774 pg/mL (232-1245)
== END 2024-11-04 23:59 | disposition home or self-care (01) ==
PROVIDERS: PCP Clinical Nurse Specialist Adult Health; Visit Provider Internal Medicine Medical Oncology
DX: Z08 Encounter for follow-up examination after completed treatment for malignant neoplasm (principal); Z85.528 Personal history of other malignant neoplasm of kidney; Z85.51 Personal history of malignant neoplasm of bladder; D50.8 Other iron deficiency anemias; R03.0 Elevated blood-pressure reading, without diagnosis of hypertension; Z90.5 Acquired absence of kidney; R91.8 Other nonspecific abnormal finding of lung field
CPT/HCPCS: 36415; 80053; 82607; 82728; 82746; 83540; 83550; 85025; 99214

== ENCOUNTER → 2024-10-26 10:58 | Outpatient (BNVA) | payer MEDICARE, SELFPAY | PROVIDERS: PCP Clinical Nurse Specialist Adult Health; Visit Provider Nurse Practitioner Family | DX: I48.20 Chronic atrial fibrillation, unspecified (principal); I47.20 Ventricular tachycardia, unspecified; I51.7 Cardiomegaly; R07.9 Chest pain, unspecified; I25.10 Atherosclerotic heart disease of native coronary artery without angina pectoris | CPT/HCPCS: 36415; 80048; 85025; 99213 ==

== ENCOUNTER → 2024-11-08 14:03 | Outpatient (BNVA) | payer MEDICARE, SELFPAY | PROVIDERS: PCP Clinical Nurse Specialist Adult Health; Visit Provider Internal Medicine Rheumatology | DX: M06.9 Rheumatoid arthritis, unspecified (principal); N18.31 Chronic kidney disease, stage 3a; Z79.899 Other long term (current) drug therapy | CPT/HCPCS: 99214 ==

== ENCOUNTER → 2024-12-24 17:19 | Outpatient (BNVA) | payer MEDICARE, SELFPAY | PROVIDERS: PCP Clinical Nurse Specialist Adult Health; Visit Provider Emergency Medicine | DX: M19.072 Primary osteoarthritis, left ankle and foot (principal); M77.8 Other enthesopathies, not elsewhere classified | CPT/HCPCS: 73590; 73630 ==

== ENCOUNTER 2024-12-29 16:00 | Oncology outpatient (recurring) (ONCR) | payer MEDICARE, SELFPAY ==
--- NOTE | 2024-12-29 16:00 | CTR_ITS ---
PROCEDURE INFORMATION: Exam: CT Left Lower Extremity Without Contrast, Leg Exam date and time: 12/29/2024 4:11 PM Age: 74 years old Clinical indication: Injury or trauma; Fall; Blunt trauma; Knee and foot; Injury date: 12-22-24; Injury details: Fell down her front porch steps landed on left knee and twisted foot; Fell, pain under anterior patella region; Additional info: Fall tibia pain TECHNIQUE: Imaging protocol: CT of the left lower extremity without contrast was performed. Exam focused on the lower leg. Radiation optimization: All CT scans at this facility use at least one of these dose optimization techniques: automated exposure control; mA and/or kV adjustment per patient size (includes targeted exams where dose is matched to clinical indication); or iterative reconstruction. COMPARISON: CR XR tibia fibula LT 2V [id number] 12/24/2024 5:23 PM RADIATION DOSE METRICS: Total DLP (mGy-cm): 1073.23 FINDINGS: Bones/joints: Sagittal images reveals slight articular cortex offset involving the posterior aspect of the medial tibial plateau. Some underlying faint lucency traverses the posterior margin of the medial tibial plateau, adjacent to a large posterior marginal osteophyte. No other fractures. No dislocation. Mild cortical thinning and diffuse osteopenia is noted. No suspicious osseous lesion. The patella is moderately deviated laterally. Severe lateral patellofemoral joint space loss. Moderate patellofemoral marginal osteophytes. Moderate to large osteophytes also involve the medial and lateral compartments. Soft tissues: Normal. CT/CT lower leg LT wo con* [id number] IMPRESSION: 1. Subtle linear lucency traversing the posterior margin of the tibial plateau, suspicious for nondisplaced fracture. The finding can be confirmed with MRI, which is more sensitive to nondisplaced fracture. 2. Severe tricompartmental degenerative disease, most marked at the patellofemoral joint.
== END 2025-01-04 23:59 | disposition home or self-care (01) ==
LOC: ONCMED 16:01
PROVIDERS: PCP Clinical Nurse Specialist Adult Health; Visit Provider Internal Medicine Medical Oncology
DX: Z08 Encounter for follow-up examination after completed treatment for malignant neoplasm (principal); Z85.528 Personal history of other malignant neoplasm of kidney; Z85.51 Personal history of malignant neoplasm of bladder; D50.8 Other iron deficiency anemias; R03.0 Elevated blood-pressure reading, without diagnosis of hypertension; Z90.5 Acquired absence of kidney; R91.8 Other nonspecific abnormal finding of lung field; S82.209A Unspecified fracture of shaft of unspecified tibia, initial encounter for closed fracture
CPT/HCPCS: 73700

== ENCOUNTER → 2025-01-06 15:39 | Outpatient (BNVA) | payer MEDICARE, SELFPAY | PROVIDERS: PCP Clinical Nurse Specialist Adult Health; Visit Provider Orthopaedic Surgery | DX: L44.8 Other specified papulosquamous disorders (principal); L29.89 Other pruritus; L82.1 Other seborrheic keratosis; D18.01 Hemangioma of skin and subcutaneous tissue; Z85.820 Personal history of malignant melanoma of skin; Z08 Encounter for follow-up examination after completed treatment for malignant neoplasm; Z85.828 Personal history of other malignant neoplasm of skin; L57.0 Actinic keratosis; X58.XXXA Exposure to other specified factors, initial encounter; S82.142A Displaced bicondylar fracture of left tibia, initial encounter for closed fracture; W19.XXXA Unspecified fall, initial encounter; Z76.89 Persons encountering health services in other specified circumstances | CPT/HCPCS: 17000; 73590; 99203; 99213 ==

== ENCOUNTER 2025-01-18 07:41 | Oncology outpatient (recurring) (ONCR) | payer MEDICARE, SELFPAY ==
[2025-01-18 08:08] LABS: Hematocrit 34.4 % (36-47); Hemoglobin 10.50 g/dL (11.27-16.99); Mean Corpuscular HGB Conc 30.5 g/dL (30-55); Mean Corpuscular Hemoglobin 27.5 pg (27-33); Mean Corpuscular Volume 90.1 fl (85-98); Nucleated Red Blood Cells % 0 %; Platelet Count 265 10^3/cmm (157-399); Red Blood Count 3.82 10^6/uL (3.85-5.65); White Blood Count 5.89 10^3/uL (3.29-11.43)
[2025-01-18 08:27] LABS: Alanine Aminotransferase 11 U/L (0-33); Albumin Level 3.7 g/dL (3.5-5.2); Alkaline Phosphatase 124 U/L (35-105); Anion Gap 17.2 (5-19); Aspartate Amino Transferase 19 U/L (0-32); Blood Urea Nitrogen 17 mg/dL (8-23); Calcium 8.6 mg/dL (8.5-10.5); Carbon Dioxide 23 mmol/L (22-29); Chloride 108 mmol/L (98-107); Ferritin 14 ng/mL (15-150); Globulin 2.8 g/dL (1.3-4.6); Glucose 84 mg/dL (65-115); Iron 19 ug/dL (37-145); Osmolality Calculated 299 mOsm/kg (285-295); Potassium 4.2 mmol/L (3.5-5.1); Sodium 144 mmol/L (136-145); Total Iron Binding Capacity 343 mcg/dl; Total Protein 6.5 g/dL (6.6-8.7); Unsaturated Iron Binding 324 ug/dL (112-347)
[2025-01-18 08:41] LABS: Vitamin B12 665 pg/mL (232-1245)
== END 2025-02-04 23:59 | disposition home or self-care (01) ==
LOC: ONCMED 07:47
PROVIDERS: Internal Medicine Medical Oncology; PCP Clinical Nurse Specialist Adult Health; Visit Provider Nurse Practitioner
DX: D50.8 Other iron deficiency anemias (principal); Z85.51 Personal history of malignant neoplasm of bladder; R03.0 Elevated blood-pressure reading, without diagnosis of hypertension; Z90.5 Acquired absence of kidney
CPT/HCPCS: 36415; 80053; 82607; 82728; 82746; 83540; 83550; 85025; 99214

== ENCOUNTER → 2025-02-01 15:33 | Outpatient (BNVA) | payer MEDICARE, SELFPAY | PROVIDERS: PCP Clinical Nurse Specialist Adult Health; Visit Provider Orthopaedic Surgery | DX: S82.143D Displaced bicondylar fracture of unspecified tibia, subsequent encounter for closed fracture with routine healing (principal); X58.XXXD Exposure to other specified factors, subsequent encounter | CPT/HCPCS: 73590; 99024; 99213 ==

== ENCOUNTER 2025-02-10 08:51 | Oncology outpatient (recurring) (ONCR) | payer MEDICARE, SELFPAY ==
[2025-02-10 09:07] VITALS: BP 129/74; PULSE 68; RESP 16; TEMP 36.6; O2SAT 96
[2025-02-10] MEDS: diphenhydrAMINE 50 mg/mL SDV 1mL 25 MG IVP (09:36)
[2025-02-10] MEDS: iron dextran 975 MG in sodium chloride 0.9% 1,000 ML 250.75 MG IV (11:19)
[2025-02-10 15:49] VITALS: BP 122/76; PULSE 68; RESP 17; TEMP 37.1; O2SAT 94
== END 2025-03-06 23:59 | disposition home or self-care (01) ==
LOC: ONCMED 08:51
PROVIDERS: PCP Clinical Nurse Specialist Adult Health; Visit Provider Nurse Practitioner
DX: D50.8 Other iron deficiency anemias (principal); Z79.899 Other long term (current) drug therapy
CPT/HCPCS: 96365; 96366; 96375; J1200; J1750; J7030; J7040; J9999

== ENCOUNTER → 2025-03-22 13:18 | Outpatient (BNVA) | payer MEDICARE, SELFPAY | PROVIDERS: PCP Clinical Nurse Specialist Adult Health; Visit Provider Internal Medicine Rheumatology | DX: M06.9 Rheumatoid arthritis, unspecified (principal); N18.9 Chronic kidney disease, unspecified; Z79.899 Other long term (current) drug therapy; Z85.520 Personal history of malignant carcinoid tumor of kidney; M81.0 Age-related osteoporosis without current pathological fracture; D64.89 Other specified anemias | CPT/HCPCS: 99214 ==